=== PATIENT | female | born 1950 | race Caucasian/White ===

== ENCOUNTER 2017-02-14 09:45 | Inpatient (IN) | payer BC ==
[~2017-02-14 09:45] MED LIST: Acetaminophen 1,000 MG in Premix Bag 1 BAG IV SCH; Famotidine 20 MG/2 ML SDV IVPUSH SCH; Ketorolac 30 MG/ML SDV IVPUSH SCH; Lidocaine 2% 5 ML SDV ONE; Midazolam 1 MG/ML 2 ML SDV ONE; Ondansetron 4 MG/2 ML SDV ONE; Phenylephrine/Normal Saline 100 MCG/ML 10 ML Syringe ONE; Propofol 200 MG/20 ML SDV ONE; Ropivacaine 49.25 ML, Ketorolac 30 MG, EPINEPHrine 0.5 MG, cloNIDine 80 MCG in Sodium C... INJECT ONE; Scopolamine 1.5 MG Transdermal Patch TRDERM SCH; Tranexamic Acid 4,000 MG in Sodium Chloride 0.9% 100 ML IV SCH; ceFAZolin 1 GM in Premix Bag 1 BAG IV SCH; diphenhydrAMINE 50 MG/ML SDV ONE; ePHEDrine 50 MG/ML SDV ONE; fentaNYL 100 MCG/2 ML SDV ONE; oxyCODONE ER 20 MG TAB.ER PO SCH
[2017-02-14] MEDS ORDERED: ePHEDrine 50 MG/ML SDV ONE (11:22)
[2017-02-14] MEDS ORDERED: HYDROmorphone 2 MG/ML Syringe ONE (14:17)
[2017-02-14] MEDS ORDERED: oxyCODONE 5 MG Tab ONE (16:25)
[2017-02-14] MEDS ORDERED: Ketorolac 30 MG/ML SDV ONE (16:40)
[2017-02-14] MEDS ORDERED: Lactated Ringers 1,000 ML IV SCH (17:30)
[2017-02-14] MEDS ORDERED: diphenhydrAMINE 25 MG Cap PO PRN (17:37)
--- NOTE | 2017-02-14 18:19 | OR ---
SURGEON: Kim Fisher MD DATE OF PROCEDURE: 02/14/2017 PREOPERATIVE DIAGNOSIS: Degenerative joint disease, left knee, tricompartmental. POSTOPERATIVE DIAGNOSIS: Degenerative joint disease, left knee, tricompartmental. PROCEDURE: Left total knee arthroplasty using patient-specific instrumentation. ASSISTANTS: 1. Charmaine Bravo PA-C. 2. Jerson Schumacher PA-C. ANESTHESIA: Spinal with sedation. ESTIMATED BLOOD LOSS: 50 mL. TOURNIQUET TIME: 32 minutes. COMPLICATIONS: None. DVT PROPHYLAXIS: PAS boot and SERA hose to the nonoperative leg. IMPLANTS USED: Tico Persona femoral component, size 6 standard (LPS), tibial component size D, 10 mm all-polyethylene articular surface, and 32 mm all-polyethylene patella. FINDINGS: Intraoperative findings showed severe tricompartmental degenerative changes. Grade 4 chondromalacia along with osteophyte formation was noted in all 3 compartments. No significant synovitis was noted. BRIEF HISTORY: Chantal is a 66-year-old female, who has had complaint of progressive left knee pain. She had failed conservative treatment. She has previously undergone a right total knee arthroplasty and has done well. Due to her lack of response to conservative treatment, I did recommend surgical intervention. The risks and goals of procedure were discussed with the patient and were documented preoperatively. She agreed to proceed. DESCRIPTION OF PROCEDURE: The patient was properly identified and brought to the operating room. The patient was then transferred from the operating room cart and placed on the operating table in a supine position. Anesthesia was administered by the anesthesia staff. After adequate anesthesia was obtained, a well-padded tourniquet was applied to the surgical lower extremity. Christian catheter was placed. The lower extremity was then prepped in standard fashion using ChloraPrep solution. It was then sterilely draped. A time-out was performed to ensure correct site and procedure. Preoperative antibiotics were given along with one gram of tranexamic acid IV. The surgical site had been marked preoperatively. An Esmarch was used to exsanguinate the right lower extremity and the tourniquet was inflated. An incision was made over the anterior aspect of the knee. The subcutaneous tissues were dissected down to the level of the fascia. A medial parapatellar approach to the knee was made. A portion of the infrapatellar fat pad was then excised. The distal femur was then exposed. The femoral patient-specific cutting guide was then placed. Pins were also placed. The distal femoral cutting block was placed and the distal femoral cut was made. Instrumentation was then removed. Both Whitesides' line and the epicondylar axis were then marked with electrocautery. The 4-in-1 cutting block was placed. This was placed in a slightly externally rotated position, which corresponded well with the previously drawn lines. The cutting guide was then pinned into position. An Nash wing guide was used to check the depth of resection of our anterior condylar cut and it was felt that no notching would occur. The anterior condylar cut was then made followed by the posterior condylar cut. Both the posterior chamfer and anterior chamfer cuts were then made. The cutting block was then removed along with the excess bony remnants. We then turned our attention to the tibia. The anterior cruciate ligament and posterior cruciate ligament were released and a posterior cruciate ligament retractor was placed to allow the tibia to be pulled anteriorly. The tibial patient-specific guide was then placed on the proximal tibia. This fit anatomically. The pins were then placed. The proximal tibia cutting guide was then placed and screwed into position. The proximal tibial resection was then made with care being taken to protect the patellar tendon. The bony resection was then removed. The remainder of the medial and lateral meniscus were then excised. Care was taken to protect the popliteus tendon. The tibia was then sized to the appropriate size. The distal femur was then elevated. The posterior capsule was stripped off the distal femur both medially and laterally. The posterior capsule along with the medial and lateral gutters were then injected with a standard mixture consisting of clonidine, epinephrine, Toradol, and Ropivacaine, unless any allergies were found preoperatively. The femoral component was then placed onto the distal femur in a slightly lateral position. This fit the femur well. A box cut was then made without difficulty. This was then removed. The tibial trial along with the polyethylene liner was then placed. The knee came easily into full extension and was stable to varus and valgus stressing both in full extension and flexion. Any additional releases were performed at this time. We then returned our attention to the patella. The patella was everted and towel clamps were used to hold the patella in position. It was resected to a 15 millimeter thickness. It was then sized to the appropriate size. It was prepared in the usual fashion after placing the predetermined size clamps. This was placed in a slightly superior and medial position. The clamp was then removed. The patellar trial button was placed. The knee was taken through a range of motion using the no-touch technique. The patella tracked centrally. A drop shira was then placed to check alignment. All instruments were then removed from the knee. The tibial sizer was then placed on the tibia. The tibia was prepared in the usual fashion using the reamer and broach. This was then removed. All bony surfaces were copiously irrigated with Pulsavac solution. They were then suctioned dry. Cement was prepared on the back table in the usual manner. Once it was prepared, the bone ends were again suctioned dry. The tibia was cemented into place first. This was malleted into position. Excess cement was then cleared. The femur was then placed in a similar manner. We placed the polyethylene trial into place and the knee was brought into full extension. An axial load was placed while keeping the knee in full extension. The patella button was also cemented into position and the clamp was used to hold this in place as the cement was allowed to cure. The wound was again copiously irrigated with saline solution using a Pulsavac corporate strategy intern. Following this 1 g of tranexamic acid was applied to the wound topically. After we had adequate curing of the cement, the knee was again taken through a range of motion. The size of the polyethylene was then determined. The polyethylene trial was then removed. The tibial tray was suctioned to make sure there was no remaining soft tissue or cement. Excess cement was cleared from around the edges of the prosthesis as well. The tourniquet was then deflated. We were able to observe for any excess bleeding and none was noted. Electrocautery was used to maintain hemostasis. An additional gram of tranexamic acid was given IV. The retractors were again placed and the predetermined polyethylene was then placed. This was locked into position without difficulty. The knee was again taken through a range of motion with no change from the prior exam. The fascial layer was closed with Number One Vicryl. The subcutaneous tissues were closed with 2-0 Vicryl. The skin was closed with jessica. Xeroform gauze was placed over the wound and a bulky dressing was applied. The patient was then awakened from anesthesia and transferred back to the operating room cart. They were brought to the recovery room in stable condition. All needle and sponge counts were correct. SHAJI / NOEL /[id number]
[2017-02-14] MEDS ORDERED: ceFAZolin 2 GM in Premix Bag 1 BAG IV ONE (18:25)
[2017-02-14] MEDS: Ketorolac 30 MG/ML SDV IVPUSH SCH ×2 (19:05→21:11)
[2017-02-14] MEDS: ceFAZolin 2 GM in Premix Bag 1 BAG IV SCH (19:06)
[2017-02-14] MEDS: Acetaminophen 1,000 MG in Premix Bag 1 BAG IV SCH ×2 (19:06→22:11)
[2017-02-14] MEDS: Docusate Sodium 100 MG Cap PO SCH (20:25)
[2017-02-14] MEDS: oxyCODONE ER 20 MG TAB.ER PO SCH (20:25)
[2017-02-14] MEDS: oxyCODONE 5 MG Tab PO PRN (22:12)
[2017-02-14] MEDS: Lactated Ringers 1,000 ML IV SCH (22:14)
[2017-02-14] MEDS: DESVENLAFAXINE 50 MG PO SCH (23:26)
[2017-02-15] MEDS ORDERED: Acetaminophen 500 MG Tab PO SCH
[2017-02-15] MEDS: HYDROmorphone 2 MG/ML Syringe IVPUSH PRN ×2 (01:33→10:37)
[2017-02-15] MEDS: ceFAZolin 2 GM in Premix Bag 1 BAG IV SCH (01:35)
[2017-02-15] MEDS: oxyCODONE 5 MG Tab PO PRN ×2 (02:37→06:36)
[2017-02-15] MEDS: Ketorolac 30 MG/ML SDV IVPUSH SCH (03:19)
[2017-02-15] MEDS: Acetaminophen 500 MG Tab PO SCH ×2 (03:19→10:39)
[2017-02-15] MEDS: Lactated Ringers 1,000 ML IV SCH (06:51)
[2017-02-15] MEDS ORDERED: Levothyroxine 112 MCG Tab PO SCH (07:30)
[2017-02-15] MEDS ORDERED: Sodium Chloride 0.9% 10 ML Syringe FLUSH PRN (08:14)
[2017-02-15] MEDS ORDERED: Sodium Chloride 0.9% 2.5 ML Syringe FLUSH PRN (08:14)
--- NOTE | 2017-02-15 08:17 | PCM.SURGPN ---
- General Info Date of Service: 02/15/17 Date of Surgery/Procedure: 02/14/17 POD#: 1 Functional Status: Reports: Pain Controlled, Tolerating Diet, Ambulating - Review of Systems General: Reports: No Symptoms Pulmonary: Reports: No Symptoms Cardiovascular: Reports: No Symptoms Gastrointestinal: Reports: No Symptoms Musculoskeletal: Reports: Leg Pain Systems Review Comment:: pt resting comfortably in bed had difficulty controlling pain last night, better this morning has been OOB with wheeled walker no specific concerns today - Patient Data Vitals - Most Recent: Last Vital Signs Temp 97.6 F 02/15/17 04:00 Pulse 90 02/15/17 04:00 Resp 17 02/15/17 04:00 BP 108/64 02/15/17 04:00 Pulse Ox 93 L 02/15/17 04:00 Weight - Most Recent: 70.307 kg I&O - Last 24 Hours: Intake & Output 02/14/17 02/15/17 02/15/17 22:59 06:59 14:59 Intake Total 1484 990 Output Total 700 600 Balance 784 390 Lab Results Last 24 Hrs: Laboratory Results - last 24 hr 02/14/17 02/15/17 Range/Units 07:50 05:12 Hgb 10.7 L (12.0-16.0) g/dL Hct 33.6 L (36.0-46.0) % Blood Type A NEGATIVE Antibody Screen NEGATIVE Med Orders - Current: Current Medications Acetaminophen (Tylenol Extra Strength) 1,000 mg PO Q6H C[facility] Last Admin: 02/15/17 03:19 Dose: 1,000 mg Aspirin (Aspirin) 325 mg PO BID CESAR Celecoxib (Celebrex) 200 mg PO BID C[facility]AR Diphenhydramine HCl (Benadryl) 0 mg PO Q6H PRN PRN Reason: Itching Docusate Sodium (Colace) 100 mg PO BID CESAR Last Admin: 02/14/17 20:25 Dose: 100 mg Hydromorphone HCl (Dilaudid) 0 mg IVPUSH Q3H PRN PRN Reason: Pain Last Admin: 02/15/17 01:33 Dose: 1 mg Cefazolin Sodium/Dextrose 1 gm (/ Premix) 50 mls @ 100 mls/hr IV ONCALL CESAR Lactated Ringer's (Ringers, Lactated) 1,000 mls @ 100 mls/hr IV ASDIRECTED [facility] Last Admin: 02/15/17 06:51 Dose: 100 mls/hr Lactated Ringer's (Ringers, Lactated) 1,000 mls @ 100 mls/hr IV ASDIRECTED [facility] Levothyroxine Sodium 112 mcg/ (Levothyroxine Sodium 25 mcg) 137 mcg PO ACBREAKFAST [facility] Last Admin: 02/15/17 06:36 Dose: 137 mcg (Desvenlafaxine [ Pristiq] 50 Mg) Patients Own Med 50 mg PO BEDTIME [facility] Last Admin: 02/14/17 23:26 Dose: Not Given (Mirabegron [ Myrbetriq] 50 Mg) Patients Own Med 50 mg PO BEDTIME [facility] Last Admin: 02/14/17 23:27 Dose: Not Given Ondansetron HCl (Zofran) 4 mg IVPUSH Q6H PRN PRN Reason: Nausea/Vomiting Oxycodone HCl (Oxycodone) 0 mg PO Q4H PRN PRN Reason: Pain Last Admin: 02/15/17 06:36 Dose: 10 mg Oxycodone HCl (Oxycontin) 20 mg PO BID [facility] Last Admin: 02/14/17 20:25 Dose: 20 mg Scopolamine (Transderm-Scop) 1.5 mg TRDERM ONARRIVE [facility] Discontinued Medications Acetaminophen (Tylenol Extra Strength) 1,000 mg PO Q6H [facility] Last Admin: 02/15/17 01:37 Dose: Not Given Diphenhydramine HCl (Benadryl) Confirm Administered Dose 50 mg .ROUTE .STK-MED ONE Stop: 02/14/17 09:27 Ephedrine Sulfate (Ephedrine Sulfate) Confirm Administered Dose 50 mg .ROUTE .STK-MED ONE Stop: 02/14/17 07:09 Ephedrine Sulfate (Ephedrine Sulfate) Confirm Administered Dose 50 mg .ROUTE .STK-MED ONE Stop: 02/14/17 07:17 Ephedrine Sulfate (Ephedrine Sulfate) Confirm Administered Dose 50 mg .ROUTE .STK-MED ONE Stop: 02/14/17 11:23 Famotidine (Pepcid) 40 mg IVPUSH ONARRIVE [facility] Stop: 02/14/17 14:01 Fentanyl (Sublimaze) Confirm Administered Dose 200 mcg .ROUTE .STK-MED ONE Stop: 02/14/17 07:09 Hydromorphone HCl (Dilaudid) Confirm Administered Dose 2 mg .ROUTE .STK-MED ONE Stop: 02/14/17 14:18 Last Admin: 02/14/17 19:04 Dose: Not Given Acetaminophen 1,000 mg/ Premix 100 mls @ 400 mls/hr IV ONARRIVE [facility] Stop: 02/14/17 14:01 Ropivacaine 49.25 ml/Ketorolac Tromethamine 30 mg/Epinephrine HCl 0.5 mg/ Clonidine HCl 80 mcg/ Sodium Chloride 100 mls @ 50 mls/sec INJECT SEECOMMENT ONE Stop: 02/14/17 08:01 Tranexamic Acid 4,000 mg/ (Sodium Chloride) 140 mls @ 600 mls/hr IV ASDIRECTED [facility] Stop: 02/14/17 14:01 Acetaminophen 1,000 mg/ Premix 100 mls @ 400 mls/hr IV Q6H [facility] Stop: 02/14/17 23:14 Last Admin: 02/14/17 22:11 Dose: 400 mls/hr Cefazolin Sodium/Dextrose 2 gm (/ Premix) 50 mls @ 100 mls/hr IV Q8H [facility] Stop: 02/15/17 01:29 Last Admin: 02/15/17 01:35 Dose: 100 mls/hr Acetaminophen (Ofirmev) Confirm Administered Dose 100 mls @ as directed IV .STK- MED ONE Stop: 02/14/17 13:49 Last Admin: 02/14/17 19:04 Dose: Not Given Acetaminophen (Ofirmev) Confirm Administered Dose 100 mls @ as directed IV .STK- MED ONE Stop: 02/14/17 16:41 Last Admin: 02/14/17 19:05 Dose: Not Given Acetaminophen (Ofirmev) Confirm Administered Dose 100 mls @ as directed IV .STK- MED ONE Stop: 02/14/17 16:45 Last Admin: 02/14/17 19:06 Dose: Not Given Cefazolin Sodium/Dextrose 2 gm (/ Premix) 50 mls @ as directed IV .STK-MED ONE Stop: 02/14/17 18:26 Ketorolac Tromethamine (Toradol) 30 mg IVPUSH ONARRIVE [facility] Stop: 02/14/17 14:01 Ketorolac Tromethamine (Toradol) 30 mg IVPUSH Q6H [facility] Stop: 02/15/17 04:00 Last Admin: 02/15/17 03:19 Dose: 30 mg Ketorolac Tromethamine (Toradol) Confirm Administered Dose 30 mg .ROUTE .STK- MED ONE Stop: 02/14/17 16:41 Last Admin: 02/14/17 19:06 Dose: Not Given Lidocaine (Xylocaine-Mpf 2%) Confirm Administered Dose 10 ml .ROUTE .STK-MED ONE Stop: 02/14/17 07:08 Midazolam HCl (Versed 1 Mg/Ml) Confirm Administered Dose 2 mg .ROUTE .STK-MED ONE Stop: 02/14/17 07:09 Ondansetron HCl (Zofran) Confirm Administered Dose 4 mg .ROUTE .STK-MED ONE Stop: 02/14/17 07:09 Oxycodone HCl (Oxycontin) 20 mg PO ONARRIVE [facility] Stop: 02/14/17 14:01 Oxycodone HCl (Oxycodone) Confirm Administered Dose 10 mg .ROUTE .STK-MED ONE Stop: 02/14/17 16:26 Last Admin: 02/14/17 19:05 Dose: Not Given Phenylephrine HCl (Phenylephrine In Ns 100 Mcg/Ml) Confirm Administered Dose 1 mg .ROUTE .STK-MED ONE Stop: 02/14/17 09:33 Propofol (Diprivan 20 Ml) Confirm Administered Dose 400 mg .ROUTE .STK-MED ONE Stop: 02/14/17 07:09 Tranexamic Acid (Cyklokapron) Confirm Administered Dose 4,000 mg .ROUTE .STK- MED ONE Stop: 02/14/17 07:22 - Exam Wound/Incisions: Dressing Dry and Intact General: Alert, Oriented Cardiovascular: Regular Rate, Regular Rhythm Extremities: Other (Exam LLE - at/ehl/gastroc 5/5, dp 2+, sensation intact distally) Physical Findings Comment:: vss, afeb uo 1000+mL hgb 10.7 - Problem List Review Problem List Initiated/Reviewed/Updated: Yes - My Orders Last 24 Hours: Active Orders 24 hr Category Date Time Status Activity as Tolerated [RC] .Routine Care 02/14/17 15:49 Active Insert Urinary Catheter [OM.PC] Q24H Care 02/14/17 08:00 Ordered Insert Urinary Catheter [OM.PC] Q24H Care 02/15/17 08:00 Ordered Neurovascular Check [RC] Q2H Care 02/14/17 16:00 Active Urinary Catheter Assessment [RC] ASDIRECTED Care 02/14/17 08:00 Active Urinary Catheter Removal [RC] Per Unit Routine Care 02/15/17 08:14 Ordered Vital Signs [RC] Q4H Care 02/14/17 15:50 Active Wound Care [RC] DAILY Care 02/14/17 15:49 Active PT Evaluation and Treatment [CONS] Routine Cons 02/14/17 15:47 Active Regular Diet [DIET] Diet 02/14/17 Dinner Active HEMOGLOBIN/HEMATOCRIT,HH [HEME] AM Lab 02/16/17 05:11 Ordered HEMOGLOBIN/HEMATOCRIT,HH [HEME] AM Lab 02/17/17 05:11 Ordered Acetaminophen [Tylenol Extra Strength] Med 02/15/17 04:00 Active 1,000 mg PO Q6H Aspirin Med 02/15/17 09:00 Active 325 mg PO BID Celecoxib [CeleBREX] Med 02/15/17 09:00 Active 200 mg PO BID Desvenlafaxine Succinate [Pristiq] Med 02/14/17 21:00 Active 50 mg PO BEDTIME Docusate Sodium [Colace] Med 02/14/17 21:00 Active 100 mg PO BID HYDROmorphone [Dilaudid] Med 02/14/17 17:34 Active See Dose Instructions IVPUSH Q3H PRN Lactated Ringers [Ringers, Lactated] 1,000 ml Med 02/14/17 17:30 Active IV ASDIRECTED Levothyroxine Med 02/15/17 07:30 Active 137 mcg PO ACBREAKFAST Mirabegron [Myrbetriq] Med 02/14/17 21:00 Active 50 mg PO BEDTIME Ondansetron [Zofran] Med 02/14/17 17:38 Active 4 mg IVPUSH Q6H PRN Sodium Chloride 0.9% [Saline Flush] Med 02/15/17 08:14 Ordered 10 ml FLUSH ASDIRECTED PRN Sodium Chloride 0.9% [Saline Flush] Med 02/15/17 08:14 Ordered 2.5 ml FLUSH ASDIRECTED PRN ceFAZolin [Ancef] 1 gm Med 02/14/17 08:00 Active Premix Bag 1 bag IV ONCALL diphenhydrAMINE [Benadryl] Med 02/14/17 17:37 Active See Dose Instructions PO Q6H PRN oxyCODONE Med 02/14/17 17:18 Active See Dose Instructions PO Q4H PRN oxyCODONE ER [OxyCONTIN] Med 02/14/17 21:00 Active 20 mg PO BID Convert IV to Saline Lock [OM.PC] Routine Oth 02/15/17 08:14 Ordered SCD [Sequential Compression Device] [OM.PC] Routine Oth 02/14/17 15:48 Ordered SERA Hose [Antiembolic Hose] [OM.PC] Routine Oth 02/14/17 15:48 Ordered Medication Orders Acetaminophen (Tylenol Extra Strength) 1,000 mg PO Q6H [facility] Last Admin: 02/15/17 03:19 Dose: 1,000 mg Aspirin (Aspirin) 325 mg PO BID [facility] Celecoxib (Celebrex) 200 mg PO BID [facility] Diphenhydramine HCl (Benadryl) 0 mg PO Q6H PRN PRN Reason: Itching Docusate Sodium (Colace) 100 mg PO BID [facility] Last Admin: 02/14/17 20:25 Dose: 100 mg Hydromorphone HCl (Dilaudid) 0 mg IVPUSH Q3H PRN PRN Reason: Pain Last Admin: 02/15/17 01:33 Dose: 1 mg Cefazolin Sodium/Dextrose 1 gm (/ Premix) 50 mls @ 100 mls/hr IV ONCALL [facility] Lactated Ringer's (Ringers, Lactated) 1,000 mls @ 100 mls/hr IV ASDIRECTED [facility] Last Admin: 02/15/17 06:51 Dose: 100 mls/hr Infusion: 02/15/17 06:51 Dose: 100 mls/hr Admin: 02/14/17 22:14 Dose: 100 mls/hr Lactated Ringer's (Ringers, Lactated) 1,000 mls @ 100 mls/hr IV ASDIRECTED [facility] Levothyroxine Sodium 112 mcg/ (Levothyroxine Sodium 25 mcg) 137 mcg PO ACBREAKFAST [facility] Last Admin: 02/15/17 06:36 Dose: 137 mcg (Desvenlafaxine [ Pristiq] 50 Mg) Patients Own Med 50 mg PO BEDTIME [facility] Last Admin: 02/14/17 23:26 Dose: (Mirabegron [ Myrbetriq] 50 Mg) Patients Own Med 50 mg PO BEDTIME [facility] Last Admin: 02/14/17 23:27 Dose: Ondansetron HCl (Zofran) 4 mg IVPUSH Q6H PRN PRN Reason: Nausea/Vomiting Oxycodone HCl (Oxycodone) 0 mg PO Q4H PRN PRN Reason: Pain Last Admin: 02/15/17 06:36 Dose: 10 mg Admin: 02/15/17 02:37 Dose: 10 mg Admin: 02/14/17 22:12 Dose: 10 mg Oxycodone HCl (Oxycontin) 20 mg PO BID [facility] Last Admin: 02/14/17 20:25 Dose: 20 mg Scopolamine (Transderm-Scop) 1.5 mg TRDERM ONARRIVE [facility] - Assessment Assessment (Free Text/Narrative):: POD#1 L TKA acute posthemorrhagic anemia - Plan Plan (Free Text/Narrative):: DC IV fluids DC nazario continue pain management PT today ASA 325mg PO BID as DVT prophylaxis if pain well controlled and does well with PT, will consider d/ch to home this afternoon dressing change prior to d/ch
[2017-02-15] MEDS: Aspirin 325 MG Tab PO SCH ×2 (08:21→20:45)
[2017-02-15] MEDS: Celecoxib 100 MG Cap PO SCH ×2 (08:21→20:46)
[2017-02-15] MEDS: oxyCODONE ER 20 MG TAB.ER PO SCH (08:22)
[2017-02-15] MEDS: Docusate Sodium 100 MG Cap PO SCH ×2 (08:22→20:45)
--- NOTE | 2017-02-15 08:32 | PCM48HPAN ---
Post Anesthesia Note - EVALUATION WITHIN 48HRS OF ANESTHETIC Vital Signs in Normal Range: Yes Patient Participated in Evaluation: Yes Respiratory Function Stable: Yes Airway Patent: Yes Cardiovascular Function Stable: Yes Hydration Status Stable: Yes Pain Control Satisfactory: Yes Nausea and Vomiting Control Satisfactory: Yes Mental Status Recovered: Yes - COMMENTS/OBSERVATIONS Free Text/Narrative:: Patient states her pain has been ok but is now requesting pain med so that it starts to work before therapy. Nurse notified at desk and will notify her nurse.
--- NOTE | 2017-02-15 08:54 | CR ---
EXAMINATION: Left knee HISTORY: TKA COMPARISON: 01/16/2017 TECHNIQUE: 2 views FINDINGS/IMPRESSION: Left total knee hardware is demonstrated in good position and alignment. Operati ve soft tissue changes are noted.
[2017-02-15] MEDS ORDERED: Acetaminophen/HYDROcodone 325-10 MG Tab PO PRN (15:32)
[2017-02-15] MEDS: oxyCODONE ER 10 MG TAB.ER PO SCH (20:46)
[2017-02-15] MEDS: DESVENLAFAXINE 50 MG PO SCH (23:18)
[2017-02-16] MEDS: HYDROmorphone 2 MG/ML Syringe IVPUSH PRN (00:17)
[2017-02-16] MEDS: Ondansetron 4 MG/2 ML SDV IVPUSH PRN ×2 (00:40→07:33)
[2017-02-16] MEDS ORDERED: Promethazine 25 MG Tab PO PRN (09:08)
--- NOTE | 2017-02-16 09:09 | PCM.SURGPN ---
Addendum entered and electronically signed by Charmaine Bravo PA 02/16/17 09: 19: dressing was changed to Aquacel dressing Original Note: <Charmaine Bravo - Last Filed: 02/16/17 09:05> - General Info Date of Service: 02/16/17 Date of Surgery/Procedure: 02/14/17 POD#: 2 - Review of Systems Gastrointestinal: Reports: Nausea, Vomiting Musculoskeletal: Reports: Leg Pain Systems Review Comment:: pt resting in bed nausea/vomiting last night, started prior to [place] 10/325 administration unable to keep pain pills down last night so pain not well controlled this morning - Patient Data Vitals - Most Recent: Last Vital Signs Temp 96.3 F 02/16/17 08:00 Pulse 91 02/16/17 08:00 Resp 22 H 02/16/17 08:00 BP 118/83 02/16/17 08:00 Pulse Ox 96 02/16/17 08:00 Weight - Most Recent: 70.307 kg I&O - Last 24 Hours: Intake & Output 02/15/17 02/16/17 02/16/17 22:59 06:59 14:59 Intake Total 820 950 Output Total 230 300 Balance 590 650 Lab Results Last 24 Hrs: Laboratory Results - last 24 hr 02/16/17 Range/Units 05:01 Hgb 10.5 L (12.0-16.0) g/dL Hct 33.5 L (36.0-46.0) % Med Orders - Current: Current Medications Hydrocodone Bitart/Acetaminophen ([place] 325-10 Mg) 1 - 2 tab PO Q4H PRN PRN Reason: Pain Last Admin: 02/15/17 21:41 Dose: 2 tab Aspirin (Aspirin) 325 mg PO BID [facility] Last Admin: 02/15/17 20:45 Dose: 325 mg Celecoxib (Celebrex) 200 mg PO BID [facility] Last Admin: 02/15/17 20:46 Dose: 200 mg Diphenhydramine HCl (Benadryl) 0 mg PO Q6H PRN PRN Reason: Itching Docusate Sodium (Colace) 100 mg PO BID [facility] Last Admin: 02/15/17 20:45 Dose: 100 mg Hydromorphone HCl (Dilaudid) 0 mg IVPUSH Q3H PRN PRN Reason: Pain Last Admin: 02/16/17 00:17 Dose: 1 mg Cefazolin Sodium/Dextrose 1 gm (/ Premix) 50 mls @ 100 mls/hr IV ONCALL [facility] Levothyroxine Sodium 112 mcg/ (Levothyroxine Sodium 25 mcg) 137 mcg PO ACBREAKFAST [facility] Last Admin: 02/16/17 07:34 Dose: 137 mcg (Desvenlafaxine [ Pristiq] 50 Mg) Patients Own Med 50 mg PO BEDTIME [facility] Last Admin: 02/15/17 23:18 Dose: Not Given (Mirabegron [ Myrbetriq] 50 Mg) Patients Own Med 50 mg PO BEDTIME [facility] Last Admin: 02/15/17 23:18 Dose: Not Given Ondansetron HCl (Zofran) 4 mg IVPUSH Q6H PRN PRN Reason: Nausea/Vomiting Last Admin: 02/16/17 07:33 Dose: 4 mg Oxycodone HCl (Oxycontin) 10 mg PO Q12HR [facility] Last Admin: 02/15/17 20:46 Dose: 10 mg Scopolamine (Transderm-Scop) 1.5 mg TRDERM ONARRIVE [facility] Sodium Chloride (Saline Flush) 10 ml FLUSH ASDIRECTED PRN PRN Reason: Keep Vein Open Sodium Chloride (Saline Flush) 2.5 ml FLUSH ASDIRECTED PRN PRN Reason: Keep Vein Open Discontinued Medications Acetaminophen (Tylenol Extra Strength) 1,000 mg PO Q6H [facility] Last Admin: 02/15/17 01:37 Dose: Not Given Acetaminophen (Tylenol Extra Strength) 1,000 mg PO Q6H [facility] Last Admin: 02/15/17 10:39 Dose: 1,000 mg Diphenhydramine HCl (Benadryl) Confirm Administered Dose 50 mg .ROUTE .STK-MED ONE Stop: 02/14/17 09:27 Ephedrine Sulfate (Ephedrine Sulfate) Confirm Administered Dose 50 mg .ROUTE .STK-MED ONE Stop: 02/14/17 07:09 Ephedrine Sulfate (Ephedrine Sulfate) Confirm Administered Dose 50 mg .ROUTE .STK-MED ONE Stop: 02/14/17 07:17 Ephedrine Sulfate (Ephedrine Sulfate) Confirm Administered Dose 50 mg .ROUTE .STK-MED ONE Stop: 02/14/17 11:23 Famotidine (Pepcid) 40 mg IVPUSH ONARRIVE [facility] Stop: 02/14/17 14:01 Fentanyl (Sublimaze) Confirm Administered Dose 200 mcg .ROUTE .STK-MED ONE Stop: 02/14/17 07:09 Hydromorphone HCl (Dilaudid) Confirm Administered Dose 2 mg .ROUTE .STK-MED ONE Stop: 02/14/17 14:18 Last Admin: 02/14/17 19:04 Dose: Not Given Acetaminophen 1,000 mg/ Premix 100 mls @ 400 mls/hr IV ONARRIVE [facility] Stop: 02/14/17 14:01 Ropivacaine 49.25 ml/Ketorolac Tromethamine 30 mg/Epinephrine HCl 0.5 mg/ Clonidine HCl 80 mcg/ Sodium Chloride 100 mls @ 50 mls/sec INJECT SEECOMMENT ONE Stop: 02/14/17 08:01 Lactated Ringer's (Ringers, Lactated) 1,000 mls @ 100 mls/hr IV ASDIRECTED [facility] Last Admin: 02/15/17 06:51 Dose: 100 mls/hr Tranexamic Acid 4,000 mg/ (Sodium Chloride) 140 mls @ 600 mls/hr IV ASDIRECTED [facility] Stop: 02/14/17 14:01 Acetaminophen 1,000 mg/ Premix 100 mls @ 400 mls/hr IV Q6H [facility] Stop: 02/14/17 23:14 Last Admin: 02/14/17 22:11 Dose: 400 mls/hr Cefazolin Sodium/Dextrose 2 gm (/ Premix) 50 mls @ 100 mls/hr IV Q8H [facility] Stop: 02/15/17 01:29 Last Admin: 02/15/17 01:35 Dose: 100 mls/hr Lactated Ringer's (Ringers, Lactated) 1,000 mls @ 100 mls/hr IV ASDIRECTED [facility] Acetaminophen (Ofirmev) Confirm Administered Dose 100 mls @ as directed IV .STK- MED ONE Stop: 02/14/17 13:49 Last Admin: 02/14/17 19:04 Dose: Not Given Acetaminophen (Ofirmev) Confirm Administered Dose 100 mls @ as directed IV .STK- MED ONE Stop: 02/14/17 16:41 Last Admin: 02/14/17 19:05 Dose: Not Given Acetaminophen (Ofirmev) Confirm Administered Dose 100 mls @ as directed IV .STK- MED ONE Stop: 02/14/17 16:45 Last Admin: 02/14/17 19:06 Dose: Not Given Cefazolin Sodium/Dextrose 2 gm (/ Premix) 50 mls @ as directed IV .STK-MED ONE Stop: 02/14/17 18:26 Ketorolac Tromethamine (Toradol) 30 mg IVPUSH ONARRIVE [facility] Stop: 02/14/17 14:01 Ketorolac Tromethamine (Toradol) 30 mg IVPUSH Q6H [facility] Stop: 02/15/17 04:00 Last Admin: 02/15/17 03:19 Dose: 30 mg Ketorolac Tromethamine (Toradol) Confirm Administered Dose 30 mg .ROUTE .STK- MED ONE Stop: 02/14/17 16:41 Last Admin: 02/14/17 19:06 Dose: Not Given Lidocaine (Xylocaine-Mpf 2%) Confirm Administered Dose 10 ml .ROUTE .STK-MED ONE Stop: 02/14/17 07:08 Midazolam HCl (Versed 1 Mg/Ml) Confirm Administered Dose 2 mg .ROUTE .STK-MED ONE Stop: 02/14/17 07:09 Ondansetron HCl (Zofran) Confirm Administered Dose 4 mg .ROUTE .STK-MED ONE Stop: 02/14/17 07:09 Oxycodone HCl (Oxycontin) 20 mg PO ONARRIVE [facility] Stop: 02/14/17 14:01 Oxycodone HCl (Oxycodone) 0 mg PO Q4H PRN PRN Reason: Pain Last Admin: 02/15/17 06:36 Dose: 10 mg Oxycodone HCl (Oxycontin) 20 mg PO BID [facility] Last Admin: 02/15/17 08:22 Dose: 20 mg Oxycodone HCl (Oxycodone) Confirm Administered Dose 10 mg .ROUTE .STK-MED ONE Stop: 02/14/17 16:26 Last Admin: 02/14/17 19:05 Dose: Not Given Phenylephrine HCl (Phenylephrine In Ns 100 Mcg/Ml) Confirm Administered Dose 1 mg .ROUTE .STK-MED ONE Stop: 02/14/17 09:33 Propofol (Diprivan 20 Ml) Confirm Administered Dose 400 mg .ROUTE .STK-MED ONE Stop: 02/14/17 07:09 Tranexamic Acid (Cyklokapron) Confirm Administered Dose 4,000 mg .ROUTE .STK- MED ONE Stop: 02/14/17 07:22 - Exam Wound/Incisions: Drainage (serosanguinous drainage from incision site). No: Erythema General: Alert, Oriented Cardiovascular: Regular Rate, Regular Rhythm Extremities: Other (LLE - at/ehl/gastroc 5/5, dp 2+, sensation intact distally) Physical Findings Comment:: vss, afeb hgb 10.5 - Problem List Review Problem List Initiated/Reviewed/Updated: Yes - My Orders Last 24 Hours: Active Orders 24 hr Category Date Time Status Urinary Catheter Removal [RC] Per Unit Routine Care 02/15/17 08:14 Active HEMOGLOBIN/HEMATOCRIT,HH [HEME] AM Lab 02/17/17 05:11 Ordered Acetaminophen/HYDROcodone [[place] 325-10 MG] Med 02/15/17 15:32 Active 1 - 2 tab PO Q4H PRN Aspirin Med 02/15/17 09:00 Active 325 mg PO BID Celecoxib [CeleBREX] Med 02/15/17 09:00 Active 200 mg PO BID Sodium Chloride 0.9% [Saline Flush] Med 02/15/17 08:14 Active 10 ml FLUSH ASDIRECTED PRN Sodium Chloride 0.9% [Saline Flush] Med 02/15/17 08:14 Active 2.5 ml FLUSH ASDIRECTED PRN oxyCODONE ER [OxyCONTIN] Med 02/15/17 21:00 Active 10 mg PO Q12HR Convert IV to Saline Lock [OM.PC] Routine Oth 02/15/17 08:14 Ordered Medication Orders Hydrocodone Bitart/Acetaminophen ([place] 325-10 Mg) 1 - 2 tab PO Q4H PRN PRN Reason: Pain Last Admin: 02/15/17 21:41 Dose: 2 tab Aspirin (Aspirin) 325 mg PO BID [facility] Last Admin: 02/15/17 20:45 Dose: 325 mg Admin: 02/15/17 08:21 Dose: 325 mg Celecoxib (Celebrex) 200 mg PO BID [facility] Last Admin: 02/15/17 20:46 Dose: 200 mg Admin: 02/15/17 08:21 Dose: 200 mg Diphenhydramine HCl (Benadryl) 0 mg PO Q6H PRN PRN Reason: Itching Docusate Sodium (Colace) 100 mg PO BID [facility] Last Admin: 02/15/17 20:45 Dose: 100 mg Admin: 02/15/17 08:22 Dose: 100 mg Admin: 02/14/17 20:25 Dose: 100 mg Hydromorphone HCl (Dilaudid) 0 mg IVPUSH Q3H PRN PRN Reason: Pain Last Admin: 02/16/17 00:17 Dose: 1 mg Admin: 02/15/17 10:37 Dose: 1 mg Admin: 02/15/17 01:33 Dose: 1 mg Cefazolin Sodium/Dextrose 1 gm (/ Premix) 50 mls @ 100 mls/hr IV ONCALL [facility] Levothyroxine Sodium 112 mcg/ (Levothyroxine Sodium 25 mcg) 137 mcg PO ACBREAKFAST [facility] Last Admin: 02/16/17 07:34 Dose: 137 mcg Admin: 02/15/17 06:36 Dose: 137 mcg (Desvenlafaxine [ Pristiq] 50 Mg) Patients Own Med 50 mg PO BEDTIME [facility] Last Admin: 02/15/17 23:18 Dose: Admin: 02/14/17 23:26 Dose: (Mirabegron [ Myrbetriq] 50 Mg) Patients Own Med 50 mg PO BEDTIME [facility] Last Admin: 02/15/17 23:18 Dose: Admin: 02/14/17 23:27 Dose: Ondansetron HCl (Zofran) 4 mg IVPUSH Q6H PRN PRN Reason: Nausea/Vomiting Last Admin: 02/16/17 07:33 Dose: 4 mg Admin: 02/16/17 00:40 Dose: 4 mg Oxycodone HCl (Oxycontin) 10 mg PO Q12HR [facility] Last Admin: 02/15/17 20:46 Dose: 10 mg Scopolamine (Transderm-Scop) 1.5 mg TRDERM ONARRIVE [facility] Sodium Chloride (Saline Flush) 10 ml FLUSH ASDIRECTED PRN PRN Reason: Keep Vein Open Sodium Chloride (Saline Flush) 2.5 ml FLUSH ASDIRECTED PRN PRN Reason: Keep Vein Open - Assessment Assessment (Free Text/Narrative):: POD#2 L TKA acute posthemorrhagic anemia nausea/vomiting - Plan Plan (Free Text/Narrative):: continue PT continue pain management - nausea/vomiting started prior to [place] 10/325 so will leave pain medications as is will add phenergan IM for nausea if nausea and pain control improves, will d/ch to home today, otherwise will keep for add'l pain control and therapy <Phillip,Kim Álvaro - Last Filed: 02/16/17 10:57> - Patient Data Vitals - Most Recent: Last Vital Signs Temp 96.3 F 02/16/17 08:00 Pulse 91 02/16/17 08:00 Resp 22 H 02/16/17 08:00 BP 118/83 02/16/17 08:00 Pulse Ox 96 02/16/17 08:00 I&O - Last 24 Hours: Intake & Output 02/15/17 02/16/17 02/16/17 22:59 06:59 14:59 Intake Total 820 950 Output Total 230 300 Balance 590 650 Lab Results Last 24 Hrs: Laboratory Results - last 24 hr 02/16/17 Range/Units 05:01 Hgb 10.5 L (12.0-16.0) g/dL Hct 33.5 L (36.0-46.0) % Med Orders - Current: Current Medications Hydrocodone Bitart/Acetaminophen ([place] 325-10 Mg) 1 - 2 tab PO Q4H PRN PRN Reason: Pain Last Admin: 02/15/17 21:41 Dose: 2 tab Aspirin (Aspirin) 325 mg PO BID [facility] Last Admin: 02/16/17 09:30 Dose: 325 mg Celecoxib (Celebrex) 200 mg PO BID [facility] Last Admin: 02/16/17 09:30 Dose: 200 mg Diphenhydramine HCl (Benadryl) 0 mg PO Q6H PRN PRN Reason: Itching Docusate Sodium (Colace) 100 mg PO BID [facility] Last Admin: 02/16/17 09:30 Dose: 100 mg Hydromorphone HCl (Dilaudid) 0 mg IVPUSH Q3H PRN PRN Reason: Pain Last Admin: 02/16/17 00:17 Dose: 1 mg Cefazolin Sodium/Dextrose 1 gm (/ Premix) 50 mls @ 100 mls/hr IV ONCALL [facility] Levothyroxine Sodium 112 mcg/ (Levothyroxine Sodium 25 mcg) 137 mcg PO ACBREAKFAST [facility] Last Admin: 02/16/17 07:34 Dose: 137 mcg (Desvenlafaxine [ Pristiq] 50 Mg) Patients Own Med 50 mg PO BEDTIME [facility] Last Admin: 02/15/17 23:18 Dose: Not Given (Mirabegron [ Myrbetriq] 50 Mg) Patients Own Med 50 mg PO BEDTIME [facility] Last Admin: 02/15/17 23:18 Dose: Not Given Ondansetron HCl (Zofran) 4 mg IVPUSH Q6H PRN PRN Reason: Nausea/Vomiting Last Admin: 02/16/17 07:33 Dose: 4 mg Oxycodone HCl (Oxycontin) 10 mg PO Q12HR [facility] Last Admin: 02/16/17 09:30 Dose: 10 mg Promethazine HCl (Phenergan) 25 mg PO Q6H PRN PRN Reason: Nausea/Vomiting Last Admin: 02/16/17 09:29 Dose: 25 mg Scopolamine (Transderm-Scop) 1.5 mg TRDERM ONARRIVE [facility] Sodium Chloride (Saline Flush) 10 ml FLUSH ASDIRECTED PRN PRN Reason: Keep Vein Open Sodium Chloride (Saline Flush) 2.5 ml FLUSH ASDIRECTED PRN PRN Reason: Keep Vein Open Discontinued Medications Acetaminophen (Tylenol Extra Strength) 1,000 mg PO Q6H [facility] Last Admin: 02/15/17 01:37 Dose: Not Given Acetaminophen (Tylenol Extra Strength) 1,000 mg PO Q6H [facility] Last Admin: 02/15/17 10:39 Dose: 1,000 mg Diphenhydramine HCl (Benadryl) Confirm Administered Dose 50 mg .ROUTE .STK-MED ONE Stop: 02/14/17 09:27 Ephedrine Sulfate (Ephedrine Sulfate) Confirm Administered Dose 50 mg .ROUTE .STK-MED ONE Stop: 02/14/17 07:09 Ephedrine Sulfate (Ephedrine Sulfate) Confirm Administered Dose 50 mg .ROUTE .STK-MED ONE Stop: 02/14/17 07:17 Ephedrine Sulfate (Ephedrine Sulfate) Confirm Administered Dose 50 mg .ROUTE .STK-MED ONE Stop: 02/14/17 11:23 Famotidine (Pepcid) 40 mg IVPUSH ONARRIVE [facility] Stop: 02/14/17 14:01 Fentanyl (Sublimaze) Confirm Administered Dose 200 mcg .ROUTE .STK-MED ONE Stop: 02/14/17 07:09 Hydromorphone HCl (Dilaudid) Confirm Administered Dose 2 mg .ROUTE .STK-MED ONE Stop: 02/14/17 14:18 Last Admin: 02/14/17 19:04 Dose: Not Given Acetaminophen 1,000 mg/ Premix 100 mls @ 400 mls/hr IV ONARRIVE [facility] Stop: 02/14/17 14:01 Ropivacaine 49.25 ml/Ketorolac Tromethamine 30 mg/Epinephrine HCl 0.5 mg/ Clonidine HCl 80 mcg/ Sodium Chloride 100 mls @ 50 mls/sec INJECT SEECOMMENT ONE Stop: 02/14/17 08:01 Lactated Ringer's (Ringers, Lactated) 1,000 mls @ 100 mls/hr IV ASDIRECTED [facility] Last Admin: 02/15/17 06:51 Dose: 100 mls/hr Tranexamic Acid 4,000 mg/ (Sodium Chloride) 140 mls @ 600 mls/hr IV ASDIRECTED [facility] Stop: 02/14/17 14:01 Acetaminophen 1,000 mg/ Premix 100 mls @ 400 mls/hr IV Q6H [facility] Stop: 02/14/17 23:14 Last Admin: 02/14/17 22:11 Dose: 400 mls/hr Cefazolin Sodium/Dextrose 2 gm (/ Premix) 50 mls @ 100 mls/hr IV Q8H [facility] Stop: 02/15/17 01:29 Last Admin: 02/15/17 01:35 Dose: 100 mls/hr Lactated Ringer's (Ringers, Lactated) 1,000 mls @ 100 mls/hr IV ASDIRECTED [facility] Acetaminophen (Ofirmev) Confirm Administered Dose 100 mls @ as directed IV .STK- MED ONE Stop: 02/14/17 13:49 Last Admin: 02/14/17 19:04 Dose: Not Given Acetaminophen (Ofirmev) Confirm Administered Dose 100 mls @ as directed IV .STK- MED ONE Stop: 02/14/17 16:41 Last Admin: 02/14/17 19:05 Dose: Not Given Acetaminophen (Ofirmev) Confirm Administered Dose 100 mls @ as directed IV .STK- MED ONE Stop: 02/14/17 16:45 Last Admin: 02/14/17 19:06 Dose: Not Given Cefazolin Sodium/Dextrose 2 gm (/ Premix) 50 mls @ as directed IV .STK-MED ONE Stop: 02/14/17 18:26 Ketorolac Tromethamine (Toradol) 30 mg IVPUSH ONARRIVE [facility] Stop: 02/14/17 14:01 Ketorolac Tromethamine (Toradol) 30 mg IVPUSH Q6H [facility] Stop: 02/15/17 04:00 Last Admin: 02/15/17 03:19 Dose: 30 mg Ketorolac Tromethamine (Toradol) Confirm Administered Dose 30 mg .ROUTE .STK- MED ONE Stop: 02/14/17 16:41 Last Admin: 02/14/17 19:06 Dose: Not Given Lidocaine (Xylocaine-Mpf 2%) Confirm Administered Dose 10 ml .ROUTE .STK-MED ONE Stop: 02/14/17 07:08 Midazolam HCl (Versed 1 Mg/Ml) Confirm Administered Dose 2 mg .ROUTE .STK-MED ONE Stop: 02/14/17 07:09 Ondansetron HCl (Zofran) Confirm Administered Dose 4 mg .ROUTE .STK-MED ONE Stop: 02/14/17 07:09 Oxycodone HCl (Oxycontin) 20 mg PO ONARRIVE [facility] Stop: 02/14/17 14:01 Oxycodone HCl (Oxycodone) 0 mg PO Q4H PRN PRN Reason: Pain Last Admin: 02/15/17 06:36 Dose: 10 mg Oxycodone HCl (Oxycontin) 20 mg PO BID [facility] Last Admin: 02/15/17 08:22 Dose: 20 mg Oxycodone HCl (Oxycodone) Confirm Administered Dose 10 mg .ROUTE .STK-MED ONE Stop: 02/14/17 16:26 Last Admin: 02/14/17 19:05 Dose: Not Given Phenylephrine HCl (Phenylephrine In Ns 100 Mcg/Ml) Confirm Administered Dose 1 mg .ROUTE .STK-MED ONE Stop: 02/14/17 09:33 Propofol (Diprivan 20 Ml) Confirm Administered Dose 400 mg .ROUTE .STK-MED ONE Stop: 02/14/17 07:09 Tranexamic Acid (Cyklokapron) Confirm Administered Dose 4,000 mg .ROUTE .STK- MED ONE Stop: 02/14/17 07:22 - My Orders Last 24 Hours: Active Orders 24 hr Category Date Time Status HEMOGLOBIN/HEMATOCRIT,HH [HEME] AM Lab 02/17/17 05:11 Ordered Acetaminophen/HYDROcodone [[place] 325-10 MG] Med 02/15/17 15:32 Active 1 - 2 tab PO Q4H PRN Promethazine [Phenergan] Med 02/16/17 09:08 Active 25 mg PO Q6H PRN oxyCODONE ER [OxyCONTIN] Med 02/15/17 21:00 Active 10 mg PO Q12HR Medication Orders Hydrocodone Bitart/Acetaminophen ([place] 325-10 Mg) 1 - 2 tab PO Q4H PRN PRN Reason: Pain Last Admin: 02/15/17 21:41 Dose: 2 tab Aspirin (Aspirin) 325 mg PO BID [facility] Last Admin: 02/16/17 09:30 Dose: 325 mg Admin: 02/15/17 20:45 Dose: 325 mg Admin: 02/15/17 08:21 Dose: 325 mg Celecoxib (Celebrex) 200 mg PO BID [facility] Last Admin: 02/16/17 09:30 Dose: 200 mg Admin: 02/15/17 20:46 Dose: 200 mg Admin: 02/15/17 08:21 Dose: 200 mg Diphenhydramine HCl (Benadryl) 0 mg PO Q6H PRN PRN Reason: Itching Docusate Sodium (Colace) 100 mg PO BID [facility] Last Admin: 02/16/17 09:30 Dose: 100 mg Admin: 02/15/17 20:45 Dose: 100 mg Admin: 02/15/17 08:22 Dose: 100 mg Admin: 02/14/17 20:25 Dose: 100 mg Hydromorphone HCl (Dilaudid) 0 mg IVPUSH Q3H PRN PRN Reason: Pain Last Admin: 02/16/17 00:17 Dose: 1 mg Admin: 02/15/17 10:37 Dose: 1 mg Admin: 02/15/17 01:33 Dose: 1 mg Cefazolin Sodium/Dextrose 1 gm (/ Premix) 50 mls @ 100 mls/hr IV ONCALL [facility] Levothyroxine Sodium 112 mcg/ (Levothyroxine Sodium 25 mcg) 137 mcg PO ACBREAKFAST [facility] Last Admin: 02/16/17 07:34 Dose: 137 mcg Admin: 02/15/17 06:36 Dose: 137 mcg (Desvenlafaxine [ Pristiq] 50 Mg) Patients Own Med 50 mg PO BEDTIME [facility] Last Admin: 02/15/17 23:18 Dose: Admin: 02/14/17 23:26 Dose: (Mirabegron [ Myrbetriq] 50 Mg) Patients Own Med 50 mg PO BEDTIME [facility] Last Admin: 02/15/17 23:18 Dose: Admin: 02/14/17 23:27 Dose: Ondansetron HCl (Zofran) 4 mg IVPUSH Q6H PRN PRN Reason: Nausea/Vomiting Last Admin: 02/16/17 07:33 Dose: 4 mg Admin: 02/16/17 00:40 Dose: 4 mg Oxycodone HCl (Oxycontin) 10 mg PO Q12HR [facility] Last Admin: 02/16/17 09:30 Dose: 10 mg Admin: 02/15/17 20:46 Dose: 10 mg Promethazine HCl (Phenergan) 25 mg PO Q6H PRN PRN Reason: Nausea/Vomiting Last Admin: 02/16/17 09:29 Dose: 25 mg Scopolamine (Transderm-Scop) 1.5 mg TRDERM ONARRIVE [facility] Sodium Chloride (Saline Flush) 10 ml FLUSH ASDIRECTED PRN PRN Reason: Keep Vein Open Sodium Chloride (Saline Flush) 2.5 ml FLUSH ASDIRECTED PRN PRN Reason: Keep Vein Open - Plan Plan (Free Text/Narrative):: 1030 patient seen and examined. Agree with above. Patient frustrated with nausea, currently adjusting medication. Does not appear to be related to pain meds. Progressing with PT. No other complaints. VSS, afeb Dressing dry/intact. NVI. POD #2 1. continue PT and mobilization 2. watch nausea--may need to adjust meds if symptoms persist 3. ASA for DVT prophylaxis 4. possible discharge home today if she is feeling better
[2017-02-16] MEDS: Aspirin 325 MG Tab PO SCH ×2 (09:30→20:54)
[2017-02-16] MEDS: Docusate Sodium 100 MG Cap PO SCH ×2 (09:30→20:54)
[2017-02-16] MEDS: oxyCODONE ER 10 MG TAB.ER PO SCH (09:30)
[2017-02-16] MEDS: Celecoxib 100 MG Cap PO SCH ×2 (09:30→20:54)
[2017-02-16 13:59] LABS: CHLORIDE,CL 98 mmol/L (98-110); SODIUM,NA 134 mmol/L (136-146)
[2017-02-16] MEDS: Sodium Chloride 0.9% 1,000 ML IV SCH (15:16)
--- NOTE | 2017-02-16 15:35 | PCM.SN ---
- Free Text/Narrative Note: pt has had continued nausea/vomiting despite minimal narcotics last [place] 10 at 2100 02/15, dilaudid IV around midnight 02/15, and oxycontin 10mg at 0900 02/16 changed to phenergan PO - pt tolerated well but had episode of emesis around 1300 BMP ordered also having decreased O2 saturation while upright and awake - does not complain of CP, cough, SOB nursing staff has been encouraging IS and O2 sats rise briefly, and then fall again BMP from this AM blood draw - BUN 28, sodium 134, calcium 8.4 POD#2 L TKA mild dehydration d/t nausea/vomiting/poor PO intake DC oxycontin [place] 10/325 for pain control CXR ordered today to r/o pna, most likely post-op atelectasis start NS 0.9% IV @ 75mL/hr repeat BMP in am continue to encourage IS encourage PO fluids
[2017-02-16] MEDS: DESVENLAFAXINE 50 MG PO SCH (20:55)
[2017-02-17] MEDS: Sodium Chloride 0.9% 1,000 ML IV SCH (05:08)
[2017-02-17 05:29] LABS: CHLORIDE,CL 102 mmol/L (98-110); SODIUM,NA 139 mmol/L (136-146)
[2017-02-17] MEDS: Docusate Sodium 100 MG Cap PO SCH ×2 (08:12→08:22)
[2017-02-17] MEDS: Celecoxib 100 MG Cap PO SCH ×2 (08:13→08:22)
[2017-02-17] MEDS: Aspirin 325 MG Tab PO SCH ×2 (08:13→08:22)
--- NOTE | 2017-02-17 08:48 | PCM.SURGPN ---
- General Info Date of Service: 02/17/17 Date of Surgery/Procedure: 02/14/17 POD#: 3 Functional Status: Reports: Pain Controlled, Ambulating, Urinating - Review of Systems Pulmonary: Denies: Shortness of Breath, Cough Cardiovascular: Denies: Chest Pain Gastrointestinal: Reports: Nausea, Vomiting Systems Review Comment:: pt resting comfortably in bed starting to feel better less nausea pain controlled - has not had pain medications in over 24 hours still participating with PT Georgia Cheung, pharmacist, noticed pt has not been receiving Pristiq in hospital, pt could possibly be in withdrawal from that medication - nausea, vomiting. Pristiq is not formulary at our hospital, but she will find a dose for the patient this morning and see how her nausea improves overall, patient feels better and would like to go home this afternoon - Patient Data Vitals - Most Recent: Last Vital Signs Temp 97.5 F 02/17/17 08:00 Pulse 88 02/17/17 08:00 Resp 16 02/17/17 08:00 BP 143/84 H 02/17/17 08:00 Pulse Ox 93 L 02/17/17 08:00 Weight - Most Recent: 70.307 kg I&O - Last 24 Hours: Intake & Output 02/16/17 02/17/17 02/17/17 22:59 06:59 14:59 Intake Total 547 1200 Output Total 250 2600 Balance 297 -1400 Lab Results Last 24 Hrs: Laboratory Results - last 24 hr 02/16/17 02/17/17 02/17/17 Range/Units 05:01 04:57 04:57 Hgb 10.1 L (12.0-16.0) g/dL Hct 31.7 L (36.0-46.0) % Sodium 134 L 139 (136-146) mmol/L Potassium 5.1 4.2 (3.5-5.1) mmol/L Chloride 98 102 (98-110) mmol/L Carbon Dioxide 29 30 (21-31) mmol/L BUN 28 H 16 (6.0-23.0) mg/dL Creatinine 0.8 0.7 (0.6-1.5) mg/dL Est Cr Clr Drug Dosing 56.45 64.51 mL/min Estimated GFR (MDRD) > 60.0 > 60.0 ml/min Glucose 150 H 131 H (60-110) mg/dL Calcium 8.4 L 8.0 L (8.8-10.8) mg/dL Med Orders - Current: Current Medications Hydrocodone Bitart/Acetaminophen ([place] 325-10 Mg) 1 - 2 tab PO Q4H PRN PRN Reason: Pain Last Admin: 02/15/17 21:41 Dose: 2 tab Aspirin (Aspirin) 325 mg PO BID [facility] Last Admin: 02/17/17 08:22 Dose: 325 mg Celecoxib (Celebrex) 200 mg PO BID [facility] Last Admin: 02/17/17 08:22 Dose: 200 mg Diphenhydramine HCl (Benadryl) 0 mg PO Q6H PRN PRN Reason: Itching Docusate Sodium (Colace) 100 mg PO BID [facility] Last Admin: 02/17/17 08:22 Dose: 100 mg Hydromorphone HCl (Dilaudid) 0 mg IVPUSH Q3H PRN PRN Reason: Pain Last Admin: 02/16/17 00:17 Dose: 1 mg Cefazolin Sodium/Dextrose 1 gm (/ Premix) 50 mls @ 100 mls/hr IV ONCALL [facility] Sodium Chloride (Normal Saline) 1,000 mls @ 75 mls/hr IV ASDIRECTED [facility] Last Admin: 02/17/17 05:08 Dose: 75 mls/hr Levothyroxine Sodium 112 mcg/ (Levothyroxine Sodium 25 mcg) 137 mcg PO ACBREAKFAST [facility] Last Admin: 02/17/17 06:30 Dose: 137 mcg (Desvenlafaxine [ Pristiq] 50 Mg) Patients Own Med 50 mg PO BEDTIME [facility] Last Admin: 02/16/17 20:55 Dose: Not Given (Mirabegron [ Myrbetriq] 50 Mg) Patients Own Med 50 mg PO BEDTIME [facility] Last Admin: 02/16/17 20:56 Dose: Not Given Ondansetron HCl (Zofran) 4 mg IVPUSH Q6H PRN PRN Reason: Nausea/Vomiting Last Admin: 02/16/17 07:33 Dose: 4 mg Promethazine HCl (Phenergan) 25 mg PO Q6H PRN PRN Reason: Nausea/Vomiting Last Admin: 02/16/17 09:29 Dose: 25 mg Scopolamine (Transderm-Scop) 1.5 mg TRDERM ONARRIVE CES[facility] Sodium Chloride (Saline Flush) 10 ml FLUSH ASDIRECTED PRN PRN Reason: Keep Vein Open Sodium Chloride (Saline Flush) 2.5 ml FLUSH ASDIRECTED PRN PRN Reason: Keep Vein Open Discontinued Medications Acetaminophen (Tylenol Extra Strength) 1,000 mg PO Q6H [facility] Last Admin: 02/15/17 01:37 Dose: Not Given Acetaminophen (Tylenol Extra Strength) 1,000 mg PO Q6H [facility] Last Admin: 02/15/17 10:39 Dose: 1,000 mg Diphenhydramine HCl (Benadryl) Confirm Administered Dose 50 mg .ROUTE .STK-MED ONE Stop: 02/14/17 09:27 Ephedrine Sulfate (Ephedrine Sulfate) Confirm Administered Dose 50 mg .ROUTE .STK-MED ONE Stop: 02/14/17 07:09 Ephedrine Sulfate (Ephedrine Sulfate) Confirm Administered Dose 50 mg .ROUTE .STK-MED ONE Stop: 02/14/17 07:17 Ephedrine Sulfate (Ephedrine Sulfate) Confirm Administered Dose 50 mg .ROUTE .STK-MED ONE Stop: 02/14/17 11:23 Famotidine (Pepcid) 40 mg IVPUSH ONARRIVE [facility] Stop: 02/14/17 14:01 Fentanyl (Sublimaze) Confirm Administered Dose 200 mcg .ROUTE .STK-MED ONE Stop: 02/14/17 07:09 Hydromorphone HCl (Dilaudid) Confirm Administered Dose 2 mg .ROUTE .STK-MED ONE Stop: 02/14/17 14:18 Last Admin: 02/14/17 19:04 Dose: Not Given Acetaminophen 1,000 mg/ Premix 100 mls @ 400 mls/hr IV ONARRIVE [facility] Stop: 02/14/17 14:01 Ropivacaine 49.25 ml/Ketorolac Tromethamine 30 mg/Epinephrine HCl 0.5 mg/ Clonidine HCl 80 mcg/ Sodium Chloride 100 mls @ 50 mls/sec INJECT SEECOMMENT ONE Stop: 02/14/17 08:01 Lactated Ringer's (Ringers, Lactated) 1,000 mls @ 100 mls/hr IV ASDIRECTED [facility] Last Admin: 02/15/17 06:51 Dose: 100 mls/hr Tranexamic Acid 4,000 mg/ (Sodium Chloride) 140 mls @ 600 mls/hr IV ASDIRECTED [facility] Stop: 02/14/17 14:01 Acetaminophen 1,000 mg/ Premix 100 mls @ 400 mls/hr IV Q6H [facility] Stop: 02/14/17 23:14 Last Admin: 02/14/17 22:11 Dose: 400 mls/hr Cefazolin Sodium/Dextrose 2 gm (/ Premix) 50 mls @ 100 mls/hr IV Q8H [facility] Stop: 02/15/17 01:29 Last Admin: 02/15/17 01:35 Dose: 100 mls/hr Lactated Ringer's (Ringers, Lactated) 1,000 mls @ 100 mls/hr IV ASDIRECTED [facility] Acetaminophen (Ofirmev) Confirm Administered Dose 100 mls @ as directed IV .STK- MED ONE Stop: 02/14/17 13:49 Last Admin: 02/14/17 19:04 Dose: Not Given Acetaminophen (Ofirmev) Confirm Administered Dose 100 mls @ as directed IV .STK- MED ONE Stop: 02/14/17 16:41 Last Admin: 02/14/17 19:05 Dose: Not Given Acetaminophen (Ofirmev) Confirm Administered Dose 100 mls @ as directed IV .STK- MED ONE Stop: 02/14/17 16:45 Last Admin: 02/14/17 19:06 Dose: Not Given Cefazolin Sodium/Dextrose 2 gm (/ Premix) 50 mls @ as directed IV .STK-MED ONE Stop: 02/14/17 18:26 Ketorolac Tromethamine (Toradol) 30 mg IVPUSH ONARRIVE [facility] Stop: 02/14/17 14:01 Ketorolac Tromethamine (Toradol) 30 mg IVPUSH Q6H [facility] Stop: 02/15/17 04:00 Last Admin: 02/15/17 03:19 Dose: 30 mg Ketorolac Tromethamine (Toradol) Confirm Administered Dose 30 mg .ROUTE .STK- MED ONE Stop: 02/14/17 16:41 Last Admin: 02/14/17 19:06 Dose: Not Given Lidocaine (Xylocaine-Mpf 2%) Confirm Administered Dose 10 ml .ROUTE .STK-MED ONE Stop: 02/14/17 07:08 Midazolam HCl (Versed 1 Mg/Ml) Confirm Administered Dose 2 mg .ROUTE .STK-MED ONE Stop: 02/14/17 07:09 Ondansetron HCl (Zofran) Confirm Administered Dose 4 mg .ROUTE .STK-MED ONE Stop: 02/14/17 07:09 Oxycodone HCl (Oxycontin) 20 mg PO ONARRIVE [facility]ES[facility] Stop: 02/14/17 14:01 Oxycodone HCl (Oxycodone) 0 mg PO Q4H PRN PRN Reason: Pain Last Admin: 02/15/17 06:36 Dose: 10 mg Oxycodone HCl (Oxycontin) 20 mg PO BID [facility] Last Admin: 02/15/17 08:22 Dose: 20 mg Oxycodone HCl (Oxycodone) Confirm Administered Dose 10 mg .ROUTE .STK-MED ONE Stop: 02/14/17 16:26 Last Admin: 02/14/17 19:05 Dose: Not Given Oxycodone HCl (Oxycontin) 10 mg PO Q12HR [facility] Last Admin: 02/16/17 09:30 Dose: 10 mg Phenylephrine HCl (Phenylephrine In Ns 100 Mcg/Ml) Confirm Administered Dose 1 mg .ROUTE .STK-MED ONE Stop: 02/14/17 09:33 Propofol (Diprivan 20 Ml) Confirm Administered Dose 400 mg .ROUTE .STK-MED ONE Stop: 02/14/17 07:09 Tranexamic Acid (Cyklokapron) Confirm Administered Dose 4,000 mg .ROUTE .STK- MED ONE Stop: 02/14/17 07:22 - Exam Wound/Incisions: Dressing Dry and Intact, Drainage (minimal shadowing to proximal bandage) General: Alert, Oriented Cardiovascular: Regular Rate, Regular Rhythm Extremities: Other (LLE - at/ehl/gastroc 5/5, dp 2+, sensation intact distally) Physical Findings Comment:: vss, afeb hgb 10.1 BUN 16 sodium 139 - Problem List Review Problem List Initiated/Reviewed/Updated: Yes - My Orders Last 24 Hours: Active Orders 24 hr Category Date Time Status Oxygen Therapy [RC] ASDIRECTED Care 02/16/17 15:23 Active Chest 2V [CR] Routine Exams 02/16/17 15:23 Taken Promethazine [Phenergan] Med 02/16/17 09:08 Active 25 mg PO Q6H PRN Sodium Chloride 0.9% [Normal Saline] 1,000 ml Med 02/16/17 14:30 Stop Req IV ASDIRECTED Medication Orders Hydrocodone Bitart/Acetaminophen ([place] 325-10 Mg) 1 - 2 tab PO Q4H PRN PRN Reason: Pain Last Admin: 02/15/17 21:41 Dose: 2 tab Aspirin (Aspirin) 325 mg PO BID [facility] Last Admin: 02/17/17 08:22 Dose: 325 mg Admin: 02/16/17 20:54 Dose: 325 mg Admin: 02/16/17 09:30 Dose: 325 mg Admin: 02/15/17 20:45 Dose: 325 mg Admin: 02/15/17 08:21 Dose: 325 mg Celecoxib (Celebrex) 200 mg PO BID [facility] Last Admin: 02/17/17 08:22 Dose: 200 mg Admin: 02/16/17 20:54 Dose: 200 mg Admin: 02/16/17 09:30 Dose: 200 mg Admin: 02/15/17 20:46 Dose: 200 mg Admin: 02/15/17 08:21 Dose: 200 mg Diphenhydramine HCl (Benadryl) 0 mg PO Q6H PRN PRN Reason: Itching Docusate Sodium (Colace) 100 mg PO BID [facility] Last Admin: 02/17/17 08:22 Dose: 100 mg Admin: 02/16/17 20:54 Dose: 100 mg Admin: 02/16/17 09:30 Dose: 100 mg Admin: 02/15/17 20:45 Dose: 100 mg Admin: 02/15/17 08:22 Dose: 100 mg Admin: 02/14/17 20:25 Dose: 100 mg Hydromorphone HCl (Dilaudid) 0 mg IVPUSH Q3H PRN PRN Reason: Pain Last Admin: 02/16/17 00:17 Dose: 1 mg Admin: 02/15/17 10:37 Dose: 1 mg Admin: 02/15/17 01:33 Dose: 1 mg Cefazolin Sodium/Dextrose 1 gm (/ Premix) 50 mls @ 100 mls/hr IV ONCALL [facility] Sodium Chloride (Normal Saline) 1,000 mls @ 75 mls/hr IV ASDIRECTED [facility] Last Admin: 02/17/17 05:08 Dose: 75 mls/hr Infusion: 02/17/17 04:36 Dose: 75 mls/hr Admin: 02/16/17 15:16 Dose: 75 mls/hr Levothyroxine Sodium 112 mcg/ (Levothyroxine Sodium 25 mcg) 137 mcg PO ACBREAKFAST [facility] Last Admin: 02/17/17 06:30 Dose: 137 mcg Admin: 02/16/17 07:34 Dose: 137 mcg Admin: 02/15/17 06:36 Dose: 137 mcg (Desvenlafaxine [ Pristiq] 50 Mg) Patients Own Med 50 mg PO BEDTIME [facility] Last Admin: 02/16/17 20:55 Dose: Admin: 02/15/17 23:18 Dose: Admin: 02/14/17 23:26 Dose: (Mirabegron [ Myrbetriq] 50 Mg) Patients Own Med 50 mg PO BEDTIME [facility] Last Admin: 02/16/17 20:56 Dose: Admin: 02/15/17 23:18 Dose: Admin: 02/14/17 23:27 Dose: Ondansetron HCl (Zofran) 4 mg IVPUSH Q6H PRN PRN Reason: Nausea/Vomiting Last Admin: 02/16/17 07:33 Dose: 4 mg Admin: 02/16/17 00:40 Dose: 4 mg Promethazine HCl (Phenergan) 25 mg PO Q6H PRN PRN Reason: Nausea/Vomiting Last Admin: 02/16/17 09:29 Dose: 25 mg Scopolamine (Transderm-Scop) 1.5 mg TRDERM ONARRIVE [facility] Sodium Chloride (Saline Flush) 10 ml FLUSH ASDIRECTED PRN PRN Reason: Keep Vein Open Sodium Chloride (Saline Flush) 2.5 ml FLUSH ASDIRECTED PRN PRN Reason: Keep Vein Open - Assessment Assessment (Free Text/Narrative):: POD#3 L TKA acute posthemorrhagic anemia - Plan Plan (Free Text/Narrative):: continue pain management dose of Pristiq this am, will hold on d/ch to home until pt receives Pristiq d/ch to home this afternoon d/ch meds on chart - norco 10, celebrex, colace, aspirin rx for FWW on chart pt felt much better after Pristiq administration at 0830 d/ch summary# [id number]
[2017-02-17] MEDS: DESVENLAFAXINE 50 MG PO SCH (09:20)
[2017-02-17] MEDS ORDERED: Ondansetron 4 MG Tab.DIS PO PRN (15:18)
--- NOTE | 2017-02-17 16:59 | CR ---
EXAM DATE: 02/14/17 PATIENT'S AGE: 66 Patient: ALEXIS DENNIS Facility: [place], [place] Site . Site : 1950 Study: XRay Chest [id number] 3:59:10 PM Ordering Physician: Phillip Alvarez Final Report: HISTORY: Decreased O2 sats, status post total knee arthroplasty. FINDINGS: PA and lateral chest radiograph demonstrates cardiac silhouette at the upper limits of normal. Pulmonary vasculature is free of cephalization. There is elevation the right hemidiaphragm with right infrahilar density. No lobar consolidation or pleural effusion is seen. Compression plate fuses the lower cervical spine. IMPRESSION: 1. Mild elevation of right hemidiaphragm with right infrahilar atelectasis or scarring. 2. No acute cardiopulmonary disease. Dictated by Susan Yousif MD @ 02/16/2017 4:19:15 PM Dictated by: Susan Yousif MD @ 02/16/2017 16:19:22 (Electronic Signature) Report Signed by Proxy. [facility]ITAL[facility]im[facility]
--- NOTE | 2017-02-22 09:28 | DISCH ---
DATE OF DISCHARGE: 02/17/2017 PRIMARY CARE PHYSICIAN: Mary Lou Tucker NP ADMITTING DIAGNOSIS: Degenerative joint disease, left knee, tricompartmental. OTHER MEDICAL DIAGNOSES: 1. Hypothyroidism. 2. Depression. 3. Stress urinary incontinence. 4. Obesity. DISCHARGE DIAGNOSES: 1. Degenerative joint disease, left knee, tricompartmental. 2. Hypothyroidism. 3. Depression. 4. Stress urinary incontinence. 5. Obesity. 6. Acute post hemorrhagic anemia. BRIEF HISTORY: Chantal is a 66-year-old female, who has had progressive complaints of left knee pain. She has tried and failed conservative treatment. At that time, surgical treatment was recommended. On February 14, 2017, the patient underwent a left total knee arthroplasty done by Dr. Kim Fisher. This was under spinal anesthesia with sedation. Estimated blood loss was 50 mL. Tourniquet time was 32 minutes. Upon completion of the procedure, the patient was transferred to the PACU and subsequently to Med/Surg for postoperative care. HOSPITAL COURSE: Postoperatively, the patient struggled with nausea and vomiting. We minimized her narcotic use, eventually using only [place] 10/325. We also changed her antiemetics to Phenergan orally. This seemed to improve, but she continued to be nauseated. It was eventually discovered that she had not been receiving her Pristiq while in the hospital, and felt that this was contributing to her symptoms. Her Pristiq was resumed, and the patient reported improvement in her symptoms. Her pain was controlled with oral pain medications. Physical therapy followed her through her hospital stay. Her vital signs have been stable. She has been afebrile. Her hemoglobin on the morning of February 17 was 10.1. An aspirin 325 mg by mouth twice daily was started on postoperative day #1 as DVT prophylaxis. She also received two doses of antibiotics post-operatively for a total of 24 hours of antibiotic coverage. Her pain is well controlled. She is ambulating well with a wheeled walker. She is tolerating oral intake. She feels comfortable with discharge to home this afternoon. DISCHARGE MEDICATIONS: 1. [place] 10/325. 2. Celebrex 200 mg. 3. Colace 100 mg. 4. Aspirin 325 mg. 5. Zofran 4 mg ODT. DISCHARGE INSTRUCTIONS: 1. Follow up in clinic 10-14 days from the date of procedure. This appointment has been made for the patient. 2. Outpatient physical therapy 2 to 3 times a week for 4 to 6 weeks. 3. Polar Care to the left knee as needed. 4. SERA hose, on in the morning, off in the evening. 5. No driving while taking narcotic pain medication. 6. She is to change her dressing on February 20, 2017. Place a new Aquacel dressing and leave that in place until follow-up. For complete medication reconciliation and discharge instructions, please refer back to the patient's EHR. Should she have questions or concerns prior to her followup appointment, she has been advised to return to clinic or call. RA COHEN /[id number] AIDAN
== END 2017-02-17 16:30 | disposition home or self-care (01) | DRG 302 ==
LOC: MW.MS 13:54
PROVIDERS: ADMIT Orthopaedic Surgery; ATTEND Orthopaedic Surgery
PROC: 0SRD0J9 Replacement of Left Knee Joint with Synthetic Substitute, Cemented, Open Approach (ICD-10-PCS; principal; 2017-02-14)
DX: M17.12 Unilateral primary osteoarthritis, left knee (principal); M94.262 Chondromalacia, left knee; M25.762 Osteophyte, left knee; E86.0 Dehydration; R11.2 Nausea with vomiting, unspecified
CPT/HCPCS: 01402; 36415; 71020; 71020-26; 73560-26-LT; 73560-LT; 80048; 85014; 85018; 86850; 86900; 86901; 88305; 88311; 97110-GP; 97116-GP; 97161-GP; A9270-GY; C1713; C1776; J0171; J0690; J0735; J1170; J1200; J1885; J2250; J2405; J2704; J2795; J3010; J7040; J7050; J7120

== ENCOUNTER 2017-04-14 07:03 | Day surgery (SDC) | payer BC ==
[~2017-04-14 07:03] MED LIST changes: -Acetaminophen 1,000 MG in Premix Bag 1 BAG IV SCH; -Famotidine 20 MG/2 ML SDV IVPUSH SCH; -Ketorolac 30 MG/ML SDV IVPUSH SCH; -Lidocaine 2% 5 ML SDV ONE; -Ondansetron 4 MG/2 ML SDV ONE; -Phenylephrine/Normal Saline 100 MCG/ML 10 ML Syringe ONE; -Ropivacaine 49.25 ML, Ketorolac 30 MG, EPINEPHrine 0.5 MG, cloNIDine 80 MCG in Sodium C... INJECT ONE; -Scopolamine 1.5 MG Transdermal Patch TRDERM SCH; -Tranexamic Acid 4,000 MG in Sodium Chloride 0.9% 100 ML IV SCH; -ceFAZolin 1 GM in Premix Bag 1 BAG IV SCH; -diphenhydrAMINE 50 MG/ML SDV ONE; -ePHEDrine 50 MG/ML SDV ONE; -oxyCODONE ER 20 MG TAB.ER PO SCH
[2017-04-14] MEDS ORDERED: ceFAZolin/Dextrose,Iso-Osmotic 2 GM/50 ML Duplex Bag IV ONE (07:27)
[2017-04-14] MEDS ORDERED: Bupivacaine 25%/EPINEPHrine/PF 30 ML ONE (07:31)
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
[2017-04-14] MEDS ORDERED: ceFAZolin 2 GM in Premix Bag 1 BAG IV ONE (08:00)
[2017-04-14] MEDS ORDERED: Bupivacaine 0.25%/EPINEPHrine 1:200,000 10 ML SDV INJECT ONE (08:00)
[2017-04-14] MEDS ORDERED: Lactated Ringers 1,000 ML IV SCH (08:00)
[2017-04-14] MEDS ORDERED: Acetaminophen/HYDROcodone 325-5 MG Tab PO PRN (08:00)
--- NOTE | 2017-04-14 09:21 | PCM48HPAN ---
Post Anesthesia Note - EVALUATION WITHIN 48HRS OF ANESTHETIC Vital Signs in Normal Range: Yes Patient Participated in Evaluation: Yes Respiratory Function Stable: Yes Airway Patent: Yes Cardiovascular Function Stable: Yes Hydration Status Stable: Yes Pain Control Satisfactory: Yes Nausea and Vomiting Control Satisfactory: Yes Mental Status Recovered: Yes Resp Rate: 14 - COMMENTS/OBSERVATIONS Free Text/Narrative:: No anesthesia problems. Patient skipped recovery room stage of postoperative care.
--- NOTE | 2017-04-14 15:09 | PCM.OPNOTE ---
- General Post-Op/Procedure Note Date of Surgery/Procedure: 04/14/17 Operative Procedure(s): left carpal tunnel release Pre Op Diagnosis: left carpal tunnel Post-Op Diagnosis: Same Anesthesia Technique: Local, MAC Primary Surgeon: Celine Simpson Diesel Engine I Pipe Fitter: Tatiana Levine Complications: None Condition: Good Free Text/Narrative:: Intake & Output 04/13/17 04/14/17 04/14/17 23:59 07:59 15:59 Intake Total 200 Balance 200
--- NOTE | 2017-04-18 21:59 | OR ---
SURGEON: KUSH VALERIO MD DATE OF PROCEDURE: 04/14/2017 PREOPERATIVE DIAGNOSIS: Left carpal tunnel syndrome. POSTOPERATIVE DIAGNOSIS: Left carpal tunnel syndrome. PROCEDURE: Left carpal tunnel release. RIBBING MACHINE OPERATOR: VALERIE Lang. REASON FOR RIBBING MACHINE OPERATOR: Retraction, prepping, draping, and closure assistance. INDICATIONS: Ms. Wilson is seen today in evaluation for left carpal tunnel release. Risks and benefits of release were discussed with her, and she was in agreement to proceed. Risks were including, but not limited to, bleeding, infection, damage to underlying or overlying structures, possible need for future interventions, possible scarring. She has failed conservative management and would like to proceed. PROCEDURE IN DETAIL: After informed consent was obtained and placed on the chart, the patient was brought to the operating theater and laid in the supine position. After adequate local MAC anesthesia was obtained, the area was prepped and draped and a time-out was completed to confirm side and site. Once adequately prepped and draped, attention was then paid to exsanguination of the arm and insufflation of the tourniquet. Attention was then paid to dissection over the transverse carpal ligament, and dissection was carried down through the skin and subcutaneous tissues until release of the ligament. Once adequately released, the area was copiously irrigated and closed using 5-0 nylon stitch in a horizontal mattress fashion. The wounds were dressed with Xeroform, fluffs, and a Kerlix gauze dressing and a 2-inch Patel wrap. The tourniquet was deflated at the end of the case for a total of documented tourniquet time. The patient tolerated this well. All counts and needles were correct. FOLLOWUP INSTRUCTIONS: The patient will see us in 2 weeks, sooner if any problems, questions, or concerns. She was given a prescription for pain control as needed. HEGGTHE / MODL /[id number]
== END 2017-04-14 09:20 | disposition home or self-care (01) ==
LOC: MW.SDS 07:03
PROVIDERS: ATTEND Plastic Surgery
DX: G56.02 Carpal tunnel syndrome, left upper limb (principal); E03.9 Hypothyroidism, unspecified; Z96.652 Presence of left artificial knee joint; Z79.899 Other long term (current) drug therapy
CPT/HCPCS: 64721; J0690; J2250; J3010; J7120; 01810; J2704

== ENCOUNTER 2017-04-28 07:21 | Day surgery (SDC) | payer BC ==
[2017-04-28] MEDS ORDERED: Bupivacaine 25%/EPINEPHrine/PF 30 ML ONE (07:26)
[2017-04-28] MEDS ORDERED: Midazolam 1 MG/ML 2 ML SDV ONE (07:38)
[2017-04-28] MEDS ORDERED: fentaNYL 100 MCG/2 ML SDV ONE (07:38)
[2017-04-28] MEDS ORDERED: Lidocaine 2% 5 ML SDV ONE (07:38)
[2017-04-28] MEDS ORDERED: Propofol 200 MG/20 ML SDV ONE (07:38)
[2017-04-28] MEDS ORDERED: ceFAZolin/Dextrose,Iso-Osmotic 2 GM/50 ML Duplex Bag IV ONE (07:39)
[2017-04-28] MEDS ORDERED: Ondansetron 4 MG/2 ML SDV ONE (07:45)
[2017-04-28] MEDS ORDERED: Ketorolac 30 MG/ML SDV ONE (07:45)
[2017-04-28] MEDS ORDERED: Acetaminophen/HYDROcodone 325-5 MG Tab PO PRN (08:00)
[2017-04-28] MEDS ORDERED: Lactated Ringers 1,000 ML IV SCH (08:00)
[2017-04-28] MEDS ORDERED: ceFAZolin 2 GM in Premix Bag 1 BAG IV ONE (08:00)
[2017-04-28] MEDS ORDERED: Bupivacaine 0.25%/EPINEPHrine 1:200,000 10 ML SDV INJECT ONE (08:00)
--- NOTE | 2017-04-28 08:24 | PCM.PREANE ---
Preanesthetic Assessment - Anesthesia/Transfusion/Family Hx Anesthesia History: Prior Anesthesia Without Reaction Family History of Anesthesia Reaction: No Transfusion History: Unknown Intubation History: Unknown - Review of Systems General: No Symptoms Pulmonary: No Symptoms Cardiovascular: No Symptoms Gastrointestinal: No Symptoms Neurological: No Symptoms Other: Reports: None - Physical Assessment NPO Status Date: 04/27/17 Height: 1.6 m Weight: 74.843 kg ASA Class: 2 Mental Status: Alert & Oriented x3 Airway Class: Mallampati = 2 Dentition: Reports: Normal Dentition ROM/Head Extension: Full Lungs: Clear to Auscultation, Normal Respiratory Effort Cardiovascular: Regular Rate, Regular Rhythm - Allergies Allergies/Adverse Reactions: Allergies Allergy/AdvReac Type Severity Reaction Status Date / Time No Known Allergies Allergy Verified 04/25/17 08:44 - Anesthesia Plan Pre-Op Medication Ordered: None - Acknowledgements Anesthesia Type Planned: MAC Pt an Appropriate Candidate for the Planned Anesthesia: Yes Alternatives and Risks of Anesthesia Discussed w Pt/Guardian: Yes Pt/Guardian Understands and Agrees with Anesthesia Plan: Yes PreAnesthesia Questionnaire HEENT History: Reports: None Cardiovascular History: Reports: None Respiratory History: Reports: None Gastrointestinal History: Reports: None 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: Musculoskeletal History: Reports: Osteoarthritis Neurological History: Reports: None Psychiatric History: Reports: Anxiety, Depression Endocrine/Metabolic History: Reports: Hypothyroidism Hematologic History: Reports: Other (See Below) Other Hematologic History: pt unsure if transfusion Immunologic History: Reports: None Oncologic (Cancer) History: Reports: None Dermatologic History: Reports: None - Past Surgical History HEENT Surgical History: Reports: Oral Surgery Female Surgical History: Reports: Hysterectomy - SUBSTANCE USE Smoking Status *Q: Never Smoker Recreational Drug Use History: No - HOME MEDS Home Medications: Home Meds Ascorbic Acid [Vitamin C] 1 tab PO DAILY 02/10/17 [History] Beta-Carotene [Beta Carotene] 1 tab PO DAILY 02/10/17 [History] Cholecalciferol (Vitamin D3) [Vitamin D3] 1,000 units CHEW DAILY 02/10/17 [ History] Desvenlafaxine Succinate [Pristiq] 50 mg PO DAILY 02/10/17 [History] Levothyroxine Sodium 137 mcg PO DAILY 02/10/17 [History] Mirabegron [Myrbetriq] 50 mg PO DAILY 02/10/17 [History] [place]-3/DHA/Epa/Fish Oil [Fish Oil EC 1,000 MG Softgel] 1 tab PO DAILY 02/10/17 [History] Acetaminophen/HYDROcodone [[place] 325-5 MG] 1 tab PO Q4H PRN #30 tablet 04/14/17 [Rx] - CURRENT (IN HOUSE) MEDS Current Meds: Current Medications Hydrocodone Bitart/Acetaminophen ([place] 325-5 Mg) 1 tab PO Q4H PRN PRN Reason: Pain Cefazolin Sodium/Dextrose 2 gm (/ Premix) 50 mls @ 100 mls/hr IV ONETIME ONE Stop: 04/28/17 08:29 Lactated Ringer's (Ringers, Lactated) 1,000 mls @ 500 mls/hr IV .BOLUS CESAR Discontinued Medications Bupivacaine HCl/Epinephrine Bitart ([place]aine 0.25%/Epinephrine 1:200,000) 10 ml INJECT ONETIME ONE Stop: 04/28/17 08:01 Cefazolin Sodium/Dextrose (Ancef) Confirm Administered Dose 2 gm IV .STK-MED ONE Stop: 04/28/17 07:40 Fentanyl (Sublimaze) Confirm Administered Dose 100 mcg .ROUTE .STK-MED ONE Stop: 04/28/17 07:39 Bupivacaine HCl/Epinephrine Bitart (Sensorc Mpf 0.25%-Epi 1:521390) Confirm Administered Dose 30 mls @ as directed .ROUTE .STK-MED ONE Stop: 04/28/17 07:27 Ketorolac Tromethamine (Toradol) Confirm Administered Dose 30 mg .ROUTE .STK- MED ONE Stop: 04/28/17 07:46 Lidocaine (Xylocaine-Mpf 2%) Confirm Administered Dose 5 ml .ROUTE .STK-MED ONE Stop: 04/28/17 07:39 Midazolam HCl (Versed 1 Mg/Ml) Confirm Administered Dose 2 mg .ROUTE .STK-MED ONE Stop: 04/28/17 07:39 Ondansetron HCl (Zofran) Confirm Administered Dose 4 mg .ROUTE .STK-MED ONE Stop: 04/28/17 07:46 Propofol (Diprivan 20 Ml) Confirm Administered Dose 200 mg .ROUTE .STK-MED ONE Stop: 04/28/17 07:39
--- NOTE | 2017-04-28 08:54 | PCM.HP ---
H&P History of Present Illness - General Date of Service: 04/28/17 Admit Problem/Dx: Here for right carpal tunnel release. Has previously had the left done. Did very well. Informed consent obtained and reviewed today. Source of Information: Patient - History of Present Illness Initial Comments - Free Text/Narative: Here for right carpal tunnel release. H&P updated and reviewed and new H&P now complete here. Onset of Symptoms: Reports: Gradual Duration of Symptoms: Reports: Chronic, Getting Worse Improves with: Reports: Movement - Related Data Allergies/Adverse Reactions: Allergies Allergy/AdvReac Type Severity Reaction Status Date / Time No Known Allergies Allergy Verified 04/25/17 08:44 Home Medications: Home Meds Ascorbic Acid [Vitamin C] 1 tab PO DAILY 02/10/17 [History] Beta-Carotene [Beta Carotene] 1 tab PO DAILY 02/10/17 [History] Cholecalciferol (Vitamin D3) [Vitamin D3] 1,000 units CHEW DAILY 02/10/17 [ History] Desvenlafaxine Succinate [Pristiq] 50 mg PO DAILY 02/10/17 [History] Levothyroxine Sodium 137 mcg PO DAILY 02/10/17 [History] Mirabegron [Myrbetriq] 50 mg PO DAILY 02/10/17 [History] [place]-3/DHA/Epa/Fish Oil [Fish Oil EC 1,000 MG Softgel] 1 tab PO DAILY 02/10/17 [History] Acetaminophen/HYDROcodone [[place] 325-5 MG] 1 tab PO Q4H PRN #30 tablet 04/14/17 [Rx] Past Medical History HEENT History: Reports: None Cardiovascular History: Reports: None Respiratory History: Reports: None Gastrointestinal History: Reports: None 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: Musculoskeletal History: Reports: Osteoarthritis Neurological History: Reports: None Psychiatric History: Reports: Anxiety, Depression Endocrine/Metabolic History: Reports: Hypothyroidism Hematologic History: Reports: Other (See Below) Other Hematologic History: pt unsure if transfusion Immunologic History: Reports: None Oncologic (Cancer) History: Reports: None Dermatologic History: Reports: None - Past Surgical History HEENT Surgical History: Reports: Oral Surgery Female Surgical History: Reports: Hysterectomy Social & Family History - Tobacco Use Smoking Status *Q: Never Smoker - Recreational Drug Use Recreational Drug Use: No H&P Review of Systems - Review of Systems: Review Of Systems: See Below General: Reports: No Symptoms HEENT: Reports: No Symptoms Pulmonary: Reports: No Symptoms Genitourinary: Reports: No Symptoms Skin: Reports: No Symptoms, Wound (healing well from previosu ctr) Neurological: Reports: Numbness, Paresthesia Exam - Exam Exam: See Below - Vital Signs Weight: 165 lb - Exam General: Alert, Oriented, Cooperative HEENT: EOMI Lungs: Clear to Auscultation, Normal Respiratory Effort Cardiovascular: Regular Rate, Regular Rhythm Extremities: Normal Inspection. No: Redness Skin: Warm, Dry, Wound (healing well on the previous incision. Sutures in place and will remove. ) Neuro Extensive - Mental Status: Alert, Oriented x3 Psychiatric: Alert, Normal Affect, Normal Mood *Q Meaningful Use (ADM) - VTE *Q VTE Criteria *Q: VTE Anticoagulation Contraindications: Med/TX Not Indicated/Need - VTE Risk Assess *Q Each Risk Factor Represents 1 Point: Minor Surgery Planned Total Score 1 Point Risk Factors: 1 Each Risk Factor Represents 2 Points: Age 60 - 74 Years Total Score 2 Point Risk Factors: 2 Each Risk Factor Represents 3 Points: None Total Score 3 Point Risk Factors: 0 Each Risk Factor Represents 5 Points: None Total Score 5 Point Risk Factors: 0 Venous Thromboembolism Risk Factor Score *Q: 3 - Stroke *Q Stroke Criteria *Q: Anticoagulation Contraindications Stroke *Q: Med/TX Not Indicated/Need Antithrombotic Contraindications Stroke *Q: Med/TX Not Indicated/Need Thrombolytic/Fibrinolytic Contraindications Stroke *Q: Med/TX Not Indicated/Need Statin Contraindications Stroke *Q: Med/TX Not Indicated/Need Rehabilitation Assessment Contraindication *Q: Med/tx not indicated/need - AMI *Q AMI Criteria *Q: Aspirin Contraindications AMI *Q: Med/TX Not Indicated/Need Thrombolytic/Fibrinolytic Contraindications IV (AMI) *Q: Med/tx not indicated/ need Statin Contraindications AMI *Q: Med/TX Not Indicated/Need - Problem List (1) Right carpal tunnel syndrome SNOMED Code(s): 52071368 ICD Code: G56.01 - CARPAL TUNNEL SYNDROME, RIGHT UPPER LIMB Status: Acute Current Visit: Yes Problem List Initiated/Reviewed/Updated: Yes Orders Last 24hrs: Active Orders 24 hr Category Date Time Status Verify Patient Consent Obtain [RC] ASDIRECTED Care 04/28/17 08:00 Active Nothing Per Oral Diet [DIET] Diet 04/28/17 Breakfast Active Acetaminophen/HYDROcodone [[place] 325-5 MG] Med 04/28/17 08:00 Active 1 tab PO Q4H PRN Lactated Ringers [Ringers, Lactated] 1,000 ml Med 04/28/17 08:00 Active IV .BOLUS Resuscitation Status Routine Resus Stat 04/27/17 20:11 Ordered Medication Orders Hydrocodone Bitart/Acetaminophen ([place] 325-5 Mg) 1 tab PO Q4H PRN PRN Reason: Pain Lactated Ringer's (Ringers, Lactated) 1,000 mls @ 500 mls/hr IV .BOLUS CESAR Last Admin: 04/28/17 08:29 Dose: 500 mls/hr Assessment/Plan Comment:: proceed with right carpal tunnel release today
[2017-04-28] MEDS ORDERED: fentaNYL 100 MCG/2 ML SDV IVPUSH PRN (09:51)
--- NOTE | 2017-04-28 10:09 | PCM.POSTAN ---
POST ANESTHESIA ASSESSMENT - MENTAL STATUS Mental Status: Alert, Oriented - VITAL SIGNS Pulse Rate: 11 SaO2: 93 Resp Rate: 11 Blood Pressure: 111/65 - RESPIRATORY Respiratory Status: Respiratory Rate WNL, Airway Patent, O2 Saturation Stable - CARDIOVASCULAR CV Status: Pulse Rate WNL, Blood Pressure Stable - GASTROINTESTINAL GI Status: No Symptoms - PAIN Pain Score: 0 - POST OP HYDRATION Hydration Status: Adequate & Stable
--- NOTE | 2017-04-28 11:37 | PCM48HPAN ---
Post Anesthesia Note - EVALUATION WITHIN 48HRS OF ANESTHETIC Vital Signs in Normal Range: Yes Patient Participated in Evaluation: Yes Respiratory Function Stable: Yes Airway Patent: Yes Cardiovascular Function Stable: Yes Hydration Status Stable: Yes Pain Control Satisfactory: Yes Nausea and Vomiting Control Satisfactory: Yes Pulse Rate: 11 Resp Rate: 11 Blood Pressure: 111/65
--- NOTE | 2017-04-28 11:48 | PCM.OPNOTE ---
- General Post-Op/Procedure Note Date of Surgery/Procedure: 04/28/17 Operative Procedure(s): right carpal tunnel release Pre Op Diagnosis: right carpal tunnel Post-Op Diagnosis: Same Anesthesia Technique: Local, MAC Primary Surgeon: Celine Simpson Lab Aid: Tatiana Levine Complications: None Condition: Good Free Text/Narrative:: Intake & Output 04/27/17 04/28/17 04/28/17 23:59 07:59 15:59 Intake Total 750 Balance 750
--- NOTE | 2017-04-29 00:36 | OR ---
SURGEON: KUSH VALERIO MD DATE OF PROCEDURE: 04/28/2017 APPLICATION PERFORMANCE ENGINEER: VALERIE Lang ANESTHESIA: Local MAC. PREOPERATIVE DIAGNOSIS: Right carpal tunnel syndrome. POSTOPERATIVE DIAGNOSIS: Right carpal tunnel syndrome. PROCEDURE: Right carpal tunnel release. INDICATIONS: Ms. Wilson is a 66-year-old female who has previously done very well with carpal tunnel release on the right side. She is here for carpal tunnel release on the left. Risks were including, but not limited to, bleeding, infection, damage to underlying or overlying structures, possible need for future interventions, possible scarring. PROCEDURE IN DETAIL: After informed consent was obtained and placed on the chart, the patient was brought to operating theater and laid in supine position. After adequate local MAC anesthesia was obtained, the area was prepped and draped, and a time-out was completed to confirm side and site. Attention was then paid to exsanguination of the arm and tourniquet was insufflated to 200 mmHg. Attention was then paid to dissection through the skin and subcutaneous tissues using a 15 blade. Once the ligament was breached, dissection was carried distally and proximally under direct visualization until complete release of the ligament. Once adequately released, the area was copiously irrigated, and the skin was closed using 5-0 nylon stitch in a horizontal mattress fashion. The wounds were dressed then with Xeroform, fluffs, and a Kerlix gauze dressing and a 2-inch Patel wrap. All counts and needles were correct at the end of the case. FOLLOWUP INSTRUCTIONS: The patient will see us in clinic in 10 to 14 days for suture removal, sooner if any problems, questions, or concerns. The sutures were removed on the right side as well. HEGGTHE / MODL /[id number]
--- NOTE | 2017-05-08 09:43 | PCM.SN ---
- Free Text/Narrative Note: Op note incorrectly state left from 04/28 in the indications. It is right as the procedure states. TH
== END 2017-04-28 11:20 | disposition home or self-care (01) ==
LOC: MW.SDS 07:21
PROVIDERS: ATTEND Plastic Surgery
DX: G56.01 Carpal tunnel syndrome, right upper limb (principal); M19.90 Unspecified osteoarthritis, unspecified site; F41.9 Anxiety disorder, unspecified; F32.9 Major depressive disorder, single episode, unspecified; E03.9 Hypothyroidism, unspecified; Z79.899 Other long term (current) drug therapy; Z90.710 Acquired absence of both cervix and uterus
CPT/HCPCS: 64721; J0690; J1885; J2250; J2405; J3010; J7120; 01810; J2704

== ENCOUNTER 2017-05-22 06:28 | Day surgery (SDC) | payer BC ==
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
[2017-05-22] MEDS ORDERED: Lidocaine 2% 5 ML SDV ONE (07:38)
[2017-05-22] MEDS ORDERED: Propofol 200 MG/20 ML SDV ONE (07:38)
[2017-05-22] MEDS ORDERED: fentaNYL 100 MCG/2 ML SDV ONE (07:38)
[2017-05-22] MEDS ORDERED: Midazolam 1 MG/ML 2 ML SDV ONE (07:39)
[2017-05-22] MEDS ORDERED: Succinylcholine 200 MG/10 ML MDV ONE (07:45)
[2017-05-22] MEDS ORDERED: Acetaminophen/HYDROcodone 325-10 MG Tab PO PRN (08:00)
--- NOTE | 2017-05-22 09:04 | PCM.POSTAN ---
POST ANESTHESIA ASSESSMENT - MENTAL STATUS Mental Status: Alert, Oriented - RESPIRATORY Respiratory Status: Respiratory Rate WNL, Airway Patent, O2 Saturation Stable - CARDIOVASCULAR CV Status: Pulse Rate WNL, Blood Pressure Stable - GASTROINTESTINAL GI Status: No Symptoms - POST OP HYDRATION Hydration Status: Adequate & Stable
--- NOTE | 2017-05-22 09:48 | PCM48HPAN ---
Post Anesthesia Note - EVALUATION WITHIN 48HRS OF ANESTHETIC Vital Signs in Normal Range: Yes Patient Participated in Evaluation: Yes Respiratory Function Stable: Yes Airway Patent: Yes Cardiovascular Function Stable: Yes Hydration Status Stable: Yes Pain Control Satisfactory: Yes (04/08) Nausea and Vomiting Control Satisfactory: Yes Resp Rate: 14 - COMMENTS/OBSERVATIONS Free Text/Narrative:: NO COMPLAINTS REGARDING CARE EXPERIENCED THIS MORNING
--- NOTE | 2017-05-22 10:43 | PCM.OPNOTE ---
- General Post-Op/Procedure Note Date of Surgery/Procedure: 05/22/17 Operative Procedure(s): Manipulation L TKA Post-Op Diagnosis: arthrofibrosis L TKA Anesthesia Technique: General ET Tube Primary Surgeon: Kim Fisher Supervisor Screen Making: Charmaine Bravo in mLs: 0 Condition: Good Free Text/Narrative:: #[id number] Intake & Output 05/21/17 05/22/17 05/22/17 22:59 06:59 14:59 Intake Total 850 Balance 850
--- NOTE | 2017-05-22 12:45 | OR ---
SURGEON: Kim Fisher MD DATE OF PROCEDURE: 05/22/2017 PREOPERATIVE DIAGNOSIS: Arthrofibrosis of left knee, status post left total knee arthroplasty. POSTOPERATIVE DIAGNOSIS: Arthrofibrosis of left knee, status post left total knee arthroplasty. PROCEDURE: Manipulation of left total knee arthroplasty. TYPING SECRETARY: Charmaine Bravo PA-C. ANESTHESIA: General. ESTIMATED BLOOD LOSS: 0 mL. TOURNIQUET TIME: 0 minutes. COMPLICATIONS: None. DVT PROPHYLAXIS: Not indicated. IMPLANTS USED: None. BRIEF HISTORY: Chantal is a 66-year-old female, who previously underwent a left total knee arthroplasty in January of 2017. She did well with therapy initially, however, developed increased pain and decreased motion in the knee. Due to her lack of response to conservative treatment, I did recommend that she undergo a knee manipulation. The risks and goals of procedure were discussed with the patient and were documented preoperatively. She agreed to proceed. DESCRIPTION OF PROCEDURE: The patient was properly identified and brought to the operating room. She was transferred from the OR cart and placed on the operating table in supine position. General anesthesia with complete relaxation was administered. After adequate anesthesia was obtained, a time-out was performed to ensure correct site and procedure. Preoperative antibiotics were not given. The surgical site had been marked preoperatively. The hip was flexed to 90 degrees and the knee was bent. She had approximately 95 degrees of knee flexion. Using gentle downward pressure, I was able to eventually flex her to nearly 120 degrees. Scar tissue release was palpated within the knee. She did have full extension. She was again taken through a range of motion at the completion of the manipulation and motion was 0 to 120 degrees. She was stable to varus and valgus stressing and had no significant anterior translation of the tibia with Drawer testing. The patient was awakened from her anesthetic and transferred back to the operating room cart. She was brought to recovery room in stable condition. All needle and sponge counts were correct. SHAJI / MODL /[id number]
== END 2017-05-22 10:04 | disposition home or self-care (01) ==
LOC: MW.SDS 06:28
PROVIDERS: ATTEND Orthopaedic Surgery
DX: T84.82XA Fibrosis due to internal orthopedic prosthetic devices, implants and grafts, initial encounter (principal); Z96.652 Presence of left artificial knee joint; Z79.899 Other long term (current) drug therapy
CPT/HCPCS: 27570; A9270; J0330; J2250; J3010; J2704